=== PATIENT | female | born 1970 | race Caucasian/White ===

== ENCOUNTER 2016-08-17 22:06 | Emergency (ER) | payer MEDICAID ==
[2016-08-17 22:19] VITALS: BP 128/71
[2016-08-17] MEDS ORDERED: Sodium Chloride 0.9% 10 ML Syringe FLUSH PRN (22:31)
[2016-08-17] MEDS ORDERED: Albuterol/Ipratropium 3.0-0.5 MG/3 ML Neb Soln NEB ONE (22:32)
--- NOTE | 2016-08-17 22:36 | EDM.PDOC ---
ED HISTORY OF PRESENT ILLNESS - General Chief Complaint: Respiratory Problem Stated Complaint: UPPER RESP PROBLEMS,SOB Time Seen by Provider: 08/17/16 22:25 Source of Information: Reports: Patient History Limitations: Reports: No limitations - History of Present Illness INITIAL COMMENTS - FREE TEXT/NARRATIVE: This 46 yo female patient reports to the ED with increased shortness of breath and cough. The patient reports her symptoms started on Sunday (4 days ago) and have been getting worse. The patient reports she does have a history of asthma and did a nebulizer treatment prior to coming to the ED. The patient has been taking Aleve - D since Sunday with little to no symptom improvement. The patient has not been able to see her primary care facility as her provider is out of town for a week. Symptom Onset Date: 08/14/16 Timing/Duration: Reports: Constant, Getting worse Severity: moderate Location, General: Reports: chest Quality: Reports: Dull, Pressure Improves with: Reports: None Worsens with: Reports: Movement Associated Symptoms (General): Reports: cough, cough w sputum, shortness of breath Treatments HATCH TENDER: Reports: Breathing treatments, Other medication(s) (Aleve-D) - Related Data Allergies/ADRs: Allergies Allergy/AdvReac Type Severity Reaction Status Date / Time No Known Allergies Allergy Verified 08/17/16 22:14 ED ROS GENERAL - Review of Systems Review Of Systems: ROS reveals no pertinent complaints other than HPI. ED EXAM, GENERAL - Physical Exam Exam: See Below Exam Limited By: No limitations General Appearance: alert, WD/WN, moderate distress Eye Exam: bilateral eye: EOMI, normal inspection, PERRL Ears: normal external exam, normal canal, hearing grossly normal, normal TMs Nose: normal inspection, normal mucosa, no blood Throat/Mouth: Normal inspection, Normal lips, Normal teeth, Normal gums, Normal oropharynx, Normal voice, No airway compromise Head: atraumatic, normocephalic Neck: normal inspection, supple, non-tender, full range of motion Respiratory/Chest: decreased breath sounds, rhonchi (diffuse), wheezing (diffuse ) Cardiovascular: normal peripheral pulses, regular rate, rhythm, no edema, no gallop, no JVD, no murmur, no rub GI/Abdominal: normal bowel sounds, soft, non tender, no organomegaly, no distention, no abnormal bruit, no mass (Female) Exam: Deferred Rectal (Female) Exam: Deferred Back Exam: normal inspection, full range of motion, NT Extremities: normal inspection, normal range of motion, non-tender, normal capillary refill, no pedal edema Neurological: alert, oriented, CN II-XII intact, normal cognition, normal gait, normal reflexes, no motor/sensory deficits Psychiatric: normal affect, normal mood Skin Exam: Warm, Dry, Intact, Normal color, No rash Lymphatic: no adenopathy Course - Vital Signs Last Recorded V/S: Last Vital Signs Temp 36.6 C 08/17/16 22:18 Pulse 83 08/17/16 22:18 Resp 24 H 08/17/16 22:18 BP 128/71 08/17/16 22:18 Pulse Ox 97 08/17/16 22:18 - Orders/Labs/Meds Orders: Active Orders 24 hr Category Date Time Status RT Aerosol Therapy [RC] ASDIRECTED Care 08/17/16 22:32 Active Sodium Chloride 0.9% [Saline Flush] Med 08/17/16 22:31 Active 10 ml FLUSH ASDIRECTED PRN cefTRIAXone [Rocephin] 1 gm Med 08/17/16 23:08 Ordered Sodium Chloride 0.9% [Normal Saline] 100 ml IV ONETIME Saline Lock Insert [OM.PC] Routine Oth 08/17/16 22:31 Ordered Medication Orders Ceftriaxone Sodium 1 gm/ (Sodium Chloride) 100 mls @ 200 mls/hr IV ONETIME ONE Stop: 08/17/16 23:37 Sodium Chloride (Saline Flush) 10 ml FLUSH ASDIRECTED PRN PRN Reason: Keep Vein Open Last Admin: 08/17/16 22:49 Dose: 10 ml Labs: Laboratory Tests 08/17/16 08/17/16 Range/Units 22:35 22:35 WBC 12.6 H (5.0-10.0) 10^3/uL RBC 4.19 L (4.2-5.4) 10^6/uL Hgb 13.1 (12.0-16.0) g/dL Hct 40.7 (37.0-47.0) % MCV 97.1 (80-100) fL MCH 31.3 (27.0-34.0) pg MCHC 32.2 L (33.0-35.0) g/dL Plt Count 203 (150-450) 10^3/uL Neut % (Auto) 68.5 (42.2-75.2) % Lymph % (Auto) 22.4 (20.5-50.1) % [place] % (Auto) 6.1 (2-8) % Eos % (Auto) 2.8 (1.0-3.0) % Baso % (Auto) 0.2 (0.0-1.0) % Sodium 137 (135-145) mmol/L Potassium 3.0 L (3.6-5.0) mmol/L Chloride 101 (101-111) mmol/L Carbon Dioxide 25.0 (21.0-31.0) mmol/L Anion Gap 14.0 BUN 11 (7-18) mg/dL Creatinine 0.7 (0.6-1.3) mg/dL Est Cr Clr Drug Dosing 92.29 mL/min Estimated GFR (MDRD) > 60 BUN/Creatinine Ratio 15.71 Glucose 177 H (74-105) mg/dL Calcium 8.7 (8.4-10.2) mg/dl Total Bilirubin 0.3 (0.2-1.0) mg/dL AST 29 (10-42) IU/L ALT 26 (10-60) IU/L Alkaline Phosphatase 84 (42-121) IU/L Total Protein 7.0 (6.7-8.2) g/dl Albumin 3.7 (3.2-5.5) g/dl Globulin 3.3 Albumin/Globulin Ratio 1.12 Meds: Medications Generic Name Dose Route Start Last Admin Trade Name Freq PRN Reason Stop Dose Admin Ceftriaxone Sodium 1 gm/ 100 mls @ 200 mls/hr 08/17/16 23:08 Sodium Chloride IV 08/17/16 23:37 ONETIME ONE Sodium Chloride 10 ml 08/17/16 22:31 08/17/16 22:49 Saline Flush FLUSH 10 ml ASDIRECTED PRN Administration Keep Vein Open Discontinued Medications Generic Name Dose Route Start Last Admin Trade Name Freq PRN Reason Stop Dose Admin Albuterol/Ipratropium 3 ml 08/17/16 22:32 08/17/16 22:49 Duoneb 3.0-0.5 Mg/3 Ml NEB 08/17/16 22:33 3 ml ONETIME ONE Administration Guaifenesin/Codeine Phosphate 5 ml 04/06/17 23:08 Robitussin Ac PO 08/17/16 23:09 ONETIME ONE Methylprednisolone Sodium Succinate 40 mg 08/17/16 23:08 Solu-Medrol IVPUSH 08/17/16 23:09 ONETIME ONE Departure - Departure Time of Disposition: 23:11 Disposition: Home, Self-Care 01 Condition: fair Clinical Impression: Community acquired pneumonia Instructions: Community-Acquired Pneumonia, Adult, [id number] Forms: ED Department Discharge Care Plan Goals: The patient was advised of the examination, lab and x-ray results during the visit. The patient was given a Duo Neb treatment, IV Rocephin, IV SoluMedrol and PO Robitussin AC while in the ED. The patient was discharged with a script for Azithromycin (250 mg) #6 to take 2 by mouth on day 1 and 1 by mouth on days 2-5, Robitussin AC #100 mL to take 5-10 mL by mouth at bedtime as needed for cough, Prednisone (20 mg) #10 to take 2 by mouth daily for 5 days and Albuterol Nebulizer Solution (1.25/3) #1 box to do 1 treatment 4 times per day as needed. If the patient has any additional symptoms or further concerns, the patient should follow-up with her primary care facility or return to the emergency department. - My Orders Last 24 Hours: My Active Orders 08/17/16 22:31 Sodium Chloride 0.9% [Saline Flush] 10 ml FLUSH ASDIRECTED PRN Saline Lock Insert [OM.PC] Routine 08/17/16 22:32 RT Aerosol Therapy [RC] ASDIRECTED 08/17/16 23:08 cefTRIAXone [Rocephin] 1 gm Sodium Chloride 0.9% [Normal Saline] 100 ml IV ONETIME - Assessment/Plan Last 24 Hours: My Active Orders 08/17/16 22:31 Sodium Chloride 0.9% [Saline Flush] 10 ml FLUSH ASDIRECTED PRN Saline Lock Insert [OM.PC] Routine 08/17/16 22:32 RT Aerosol Therapy [RC] ASDIRECTED 08/17/16 23:08 cefTRIAXone [Rocephin] 1 gm Sodium Chloride 0.9% [Normal Saline] 100 ml IV ONETIME
[2016-08-17 23:03] LABS: CHLORIDE,CL 101 mmol/L (101-111); SODIUM,NA 137 mmol/L (135-145)
[2016-08-17] MEDS ORDERED: methylPREDNISolone Sodium Succinate 40 MG/1 ML SDV IVPUSH ONE (23:08)
[2016-08-17] MEDS ORDERED: cefTRIAXone 1 GM in Sodium Chloride 0.9% 100 ML IV ONE (23:08)
[2016-08-17] MEDS ORDERED: Codeine/guaiFENesin 100-10 MG/5 ML Syrup 5 ML Cup PO ONE (23:08)
== END 2016-08-18 00:11 | disposition home or self-care (01) ==
LOC: DL.ED 22:06
DX: J18.9 Pneumonia, unspecified organism (principal)
CPT/HCPCS: 36415; 71020; 80053; 85025; 96365; 96375; 99284; A9270; J0696; J2920; J7050

== ENCOUNTER 2016-09-03 14:02 | Emergency (ER) | payer MEDICAID ==
[2016-09-03 14:18] VITALS: BP 130/79
--- NOTE | 2016-09-03 14:43 | EDM.PDOC ---
ED HISTORY OF PRESENT ILLNESS - General Chief Complaint: Respiratory Problem Stated Complaint: POSSIBLE PNEUMONIA? Time Seen by Provider: 09/03/16 14:34 Source of Information: Reports: Patient History Limitations: Reports: No limitations - History of Present Illness INITIAL COMMENTS - FREE TEXT/NARRATIVE: patient complains of dyspnea and cough. Notes recent diagnosis of pneumonia. Continues to feel symptoms of dyspnea with exertion cough and fatigue. Intermittent fever and chills.complains of productive cough and occasional wheezing. Has a history of asthma Timing/Duration: Reports: Day(s): Severity: moderate Location, General: Reports: chest Quality: Reports: Ache - Related Data Allergies/ADRs: Allergies Allergy/AdvReac Type Severity Reaction Status Date / Time mold Allergy Anaphylactic Verified 09/03/16 14:06 Shock pollen extracts Allergy Anaphylactic Verified 09/03/16 14:06 Shock DUST Allergy Anaphylactic Uncoded 09/03/16 14:06 Shock Home Meds: Home Meds ALPRAZolam [Xanax] 1 mg PO TID PRN 05/13/15 [History] Albuterol Sulfate [Proventil Hfa] 2 puff INH ASDIRECTED PRN 05/13/15 [History] Furosemide [Lasix] 20 mg PO DAILY 05/13/15 [History] Omeprazole 20 mg PO BID 05/13/15 [History] Levothyroxine 125 mcg PO DAILY 03/21/16 [History] Meloxicam 15 mg PO DAILY #30 tablet 03/22/16 [Rx] tiZANidine [Zanaflex] 8 mg PO Q8H PRN #60 03/22/16 [Rx] Past Medical History HEENT History: Reports: Allergic rhinitis, Impaired vision Cardiovascular History: Reports: Heart murmur Respiratory History: Reports: Asthma, Bronchitis, recurrent, Pneumonia, recurrent Gastrointestinal History: Reports: GERD Genitourinary History: Reports: Renal calculus, UTI, recurrent 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 Psychiatric History: Reports: Anxiety Endocrine/Metabolic History: Reports: Hypothyroidism - Infectious Disease History Infectious Disease History: Reports: Chicken pox - Past Surgical History GI Surgical History: Reports: Cholecystectomy, Other (see below) Other GI Surgeries/Procedures: anal fissure repair Female Surgical History: Reports: section Neurological Surgical History: Reports: Other (see below) Other Neurological Surgeries/Procedures: herniated disc repair Musculoskeletal Surgical History: Reports: Other (see below) Other Musculoskeletal Surgeries/Procedures:: KNEE SURGERY 7 YEARS AGO L4-L5 DISK SURGERY, L5-S1 BULGE Social & Family History - Family History Family Medical History: Noncontributory Cardiac: Reports: Hypertension Endocrine/Metabolic: Reports: Diabetes, type II - Tobacco Use Smoking Status *Q: Never Smoker Second Hand Smoke Exposure: No - Caffeine Use Caffeine Use: Reports: None - Recreational Drug Use Recreational Drug Use: No ED ROS GENERAL - Review of Systems Review Of Systems: See Below Constitutional: Reports: fever, chills, malaise HEENT: Reports: No symptoms Respiratory: Reports: Shortness of Breath, Wheezing, Cough, Sputum. Denies: Hemoptysis Cardiovascular: Reports: Dyspnea on exertion. Denies: Blood pressure problem Endocrine: Reports: no symptoms GI/Abdominal: Reports: No symptoms : Reports: no symptoms Musculoskeletal: Reports: no symptoms Skin: Reports: no symptoms Neurological: Reports: No Symptoms Psychiatric: Reports: No symptoms ED EXAM, GENERAL - Physical Exam Exam: See Below Exam Limited By: No limitations General Appearance: alert, WD/WN, no apparent distress Throat/Mouth: Normal inspection, Normal oropharynx Head: atraumatic, normocephalic Respiratory/Chest: decreased breath sounds, rhonchi, wheezing. No: crackles, rales Cardiovascular: regular rate, rhythm, no murmur Course - Vital Signs Last Recorded V/S: Last Vital Signs Temp 97 F 09/03/16 14:17 Pulse 65 09/03/16 15:07 Resp 20 09/03/16 14:17 BP 130/79 09/03/16 14:17 Pulse Ox 98 09/03/16 15:07 - Orders/Labs/Meds Orders: Active Orders 24 hr Category Date Time Status RT Aerosol Therapy [RC] ASDIRECTED Care 09/03/16 15:02 Active Chest 2V [CR] Urgent Exams 09/03/16 14:34 Taken Labs: Laboratory Tests 09/03/16 09/03/16 09/03/16 Range/Units 14:40 14:43 14:43 WBC 10.7 H (5.0-10.0) 10^3/uL RBC 4.22 (4.2-5.4) 10^6/uL Hgb 13.3 (12.0-16.0) g/dL Hct 40.6 (37.0-47.0) % MCV 96.2 (80-100) fL MCH 31.5 (27.0-34.0) pg MCHC 32.8 L (33.0-35.0) g/dL Plt Count 248 (150-450) 10^3/uL Neut % (Auto) 67.2 (42.2-75.2) % Lymph % (Auto) 21.9 (20.5-50.1) % [place] % (Auto) 6.5 (2-8) % Eos % (Auto) 4.1 H (1.0-3.0) % Baso % (Auto) 0.3 (0.0-1.0) % Sodium 137 (135-145) mmol/L Potassium 3.6 (3.6-5.0) mmol/L Chloride 102 (101-111) mmol/L Carbon Dioxide 27.0 (21.0-31.0) mmol/L Anion Gap 11.6 BUN 15 (7-18) mg/dL Creatinine 0.9 (0.6-1.3) mg/dL Est Cr Clr Drug Dosing 71.78 mL/min Estimated GFR (MDRD) > 60 Glucose 86 (74-105) mg/dL Calcium 8.9 (8.4-10.2) mg/dl Urine Color Yellow (YELLOW) Urine Appearance Cloudy (CLEAR) Urine pH 6.0 (5.0-9.0) Ur Specific [place] 1.020 (1.005-1.030) Urine Protein Negative (NEGATIVE) Urine Glucose (UA) Negative (NEGATIVE) Urine Ketones Negative (NEGATIVE) Urine Occult Blood Negative (NEGATIVE) Urine Nitrite Negative (NEGATIVE) Urine Bilirubin Negative (NEGATIVE) Urine Urobilinogen 0.2 (0.2-1.0) mg/dL Ur Leukocyte Esterase Small H (NEGATIVE) Urine RBC 0-5 /HPF Urine WBC 0-5 (0-5/HPF) /HPF Ur Epithelial Cells Many H /HPF Urine Bacteria Moderate H (0-FEW/HPF) /HPF Urinalysis Comment Meds: Medications Discontinued Medications Generic Name Dose Route Start Last Admin Trade Name Freq PRN Reason Stop Dose Admin Albuterol/Ipratropium 3 ml 09/03/16 15:02 09/03/16 15:06 Duoneb 3.0-0.5 Mg/3 Ml NEB 09/03/16 15:03 3 ml ONETIME ONE Administration Departure - Departure Time of Disposition: 15:45 Disposition: Home, Self-Care 01 Condition: good Clinical Impression: Bronchitis Reactive airway disease Qualifiers: Asthma severity: unspecified severity Asthma complication type: uncomplicated Qualified Code(s): J45.909 - Unspecified asthma, uncomplicated Forms: ED Department Discharge Additional Instructions: take the prednisone as directed. Use nebulizers as directed. Weight a few days before committing to Zithromax. Followup with regular provider in one to 2 weeks if needed. Call or return to emergency room if any problems questions or concerns - My Orders Last 24 Hours: My Active Orders 09/03/16 14:34 Chest 2V [CR] Urgent 09/03/16 15:02 RT Aerosol Therapy [RC] ASDIRECTED - Assessment/Plan Last 24 Hours: My Active Orders 09/03/16 14:34 Chest 2V [CR] Urgent 09/03/16 15:02 RT Aerosol Therapy [RC] ASDIRECTED
[2016-09-03] MEDS ORDERED: Albuterol/Ipratropium 3.0-0.5 MG/3 ML Neb Soln NEB ONE (15:02)
[2016-09-03 15:08] LABS: CHLORIDE,CL 102 mmol/L (101-111); SODIUM,NA 137 mmol/L (135-145)
== END 2016-09-03 15:54 | disposition home or self-care (01) ==
LOC: DL.ED 14:02
DX: J40 Bronchitis, not specified as acute or chronic (principal); R01.1 Cardiac murmur, unspecified; Z87.01 Personal history of pneumonia (recurrent); K21.9 Gastro-esophageal reflux disease without esophagitis; F41.9 Anxiety disorder, unspecified; E03.9 Hypothyroidism, unspecified; Z90.49 Acquired absence of other specified parts of digestive tract; Z91.09 Other allergy status, other than to drugs and biological substances; Z79.899 Other long term (current) drug therapy; Z87.440 Personal history of urinary (tract) infections; Z86.73 Personal history of transient ischemic attack (TIA), and cerebral infarction without residual deficits
CPT/HCPCS: 36415; 71020; 80048; 81001; 85025; 94640; 99285

== ENCOUNTER 2016-11-04 09:58 | Emergency (ER) | payer MEDICAID ==
[2016-11-04 10:40] VITALS: BP 121/75
--- NOTE | 2016-11-04 10:47 | EDM.PDOC ---
ED HPI GENERAL MEDICAL PROBLEM - General Chief Complaint: Back Pain or Injury Stated Complaint: [id number] BACK SURGERY SLIPPED & JOLTED JENNIFER Time Seen by Provider: 11/04/16 10:05 Source of Information: Reports: Patient History Limitations: Reports: No Limitations - History of Present Illness INITIAL COMMENTS - FREE TEXT/NARRATIVE: Patient consumers department today with complaints of lower back pain. The patient had a rather extensive surgery on 10/19/16 in [facility] on her L5-S1 region where she had some titanium rods as well as cadaveric bones placed. Last night she went to sit down on a chair when she fell a little hard into the chair and developed left lower back pain. She denies any numbness or tingling to her lower extremities. She denies any change in bowel or bladder. She is able to ambulate with quite a bit of pain although there is no change in the functionality of her lower extremities. She has been taking her oxycodone as well as Zanaflex and her pain is much worse than it was previously. She did talk with the ask a nurse in [place] in the told her to be evaluated to ensure that there is no injury to the hardware that was placed. Lower Back Pain Score (Numeric/FACES): 8 - Related Data Allergies Allergy/AdvReac Type Severity Reaction Status Date / Time mold Allergy Anaphylactic Verified 11/04/16 10:40 Shock pollen extracts Allergy Anaphylactic Verified 11/04/16 10:40 Shock DUST Allergy Anaphylactic Uncoded 09/03/16 14:06 Shock Home Meds: Home Meds ALPRAZolam [Xanax] 1 mg PO TID PRN 05/13/15 [History] Albuterol Sulfate [Proventil Hfa] 2 puff INH ASDIRECTED PRN 05/13/15 [History] Furosemide [Lasix] 20 mg PO DAILY 05/13/15 [History] Omeprazole 20 mg PO BID 05/13/15 [History] Levothyroxine 125 mcg PO DAILY 03/21/16 [History] tiZANidine [Zanaflex] 8 mg PO Q8H PRN #60 03/22/16 [Rx] Diazepam [Valium] 5 mg PO Q6H PRN 11/04/16 [History] Gabapentin [Neurontin] 300 mg PO BID 11/04/16 [History] Gabapentin [Neurontin] 600 mg PO BEDTIME 11/04/16 [History] Past Medical History HEENT History: Reports: Allergic Rhinitis, Impaired Vision Cardiovascular History: Reports: Heart Murmur Respiratory History: Reports: Asthma, Bronchitis, Recurrent, Pneumonia, Recurrent Gastrointestinal History: Reports: GERD Genitourinary History: Reports: Renal Calculus, UTI, Recurrent 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 Psychiatric History: Reports: Anxiety Endocrine/Metabolic History: Reports: Hypothyroidism - Infectious Disease History Infectious Disease History: Reports: Chicken Pox - Past Surgical History GI Surgical History: Reports: Cholecystectomy, Other (See Below) Female Surgical History: Reports: Section Neurological Surgical History: Reports: Other (See Below) Musculoskeletal Surgical History: Reports: Other (See Below) Social & Family History - Family History Family Medical History: Noncontributory Cardiac: Reports: Hypertension Endocrine/Metabolic: Reports: Diabetes, type II - Tobacco Use Smoking Status *Q: Never Smoker Second Hand Smoke Exposure: No - Caffeine Use Caffeine Use: Reports: None - Recreational Drug Use Recreational Drug Use: No ED ROS GENERAL - Review of Systems Review Of Systems: ROS reveals no pertinent complaints other than HPI. ED EXAM,LOWER BACK PAIN/INJURY - Physical Exam Exam: See Below Text/Narrative:: The patient makes position changes quite slow and stiff. She is able to stand at the bedside and ambulate without a limp. Her gait is steady. Exam Limited By: No Limitations General Appearance: Alert, WD/WN Respiratory/Chest: No Respiratory Distress, Lungs Clear, No Accessory Muscle Use Cardiovascular: Normal Peripheral Pulses, Regular Rate, Rhythm, No Edema Back Exam: Decreased Range of Motion, Other (There is a well-healed vertical incision at the L5-S1 lower lumbar region. There is minimal tenderness just left side of the incision. There is no bony deformity.). No: CVA Tenderness (L) , CVA Tenderness (R), Muscle Spasm, Vertebral Tenderness Extremities: Normal Inspection, Normal Range of Motion, Non-Tender, No Pedal Edema Neurological: Alert, Normal Mood/Affect, Normal Dorsiflexion, CN II-XII Intact, Normal Plantar Flexion, Normal Gait, Normal Reflexes, No Motor/Sensory Deficits , Oriented x 3 DTR - Lower Extremities: 2+: Knee (R), Knee (L), Ankle (R), Ankle (L) Psychiatric: Normal Affect, Normal Mood Skin Exam: Warm, Dry, Intact, Normal Color Lymphatic: No Adenopathy Course - Vital Signs Last Recorded V/S: Last Vital Signs Temp 36.2 C 11/04/16 10:29 Pulse 85 11/04/16 10:29 Resp 18 11/04/16 10:29 BP 121/75 11/04/16 10:29 Pulse Ox 98 11/04/16 10:29 - Orders/Labs/Meds Meds: Medications Discontinued Medications Generic Name Dose Route Start Last Admin Trade Name Freq PRN Reason Stop Dose Admin Acetaminophen 1,000 mg 11/04/16 12:00 11/04/16 12:04 Tylenol Extra Strength PO 11/04/16 12:01 1,000 mg ONETIME ONE Administration - Radiology Interpretation Free Text/Narrative:: Per [facility] internal fixation device at [id number]. No acute fracture. No dislocation. Absence of the right facet of the L4-L5. Opacity in this region may represent hemorrhage or infection. resection of part of the right facet at L5/S1. Opacities in this region may represent hemorrhage or infection. I did have our radiologist Dr. Delvalle reviewed as well he did not find any acute fractures hemorrhage or swelling. - Re-Assessments/Exams Free Text/Narrative Re-Assessment/Exam: 11/04/16 12:33 Pt refused any narcotics for pain as she does not like them. DId take some tylenol PO. Radiology report from [facility] is somewhat vague, I did have Dr. Delvalle our radiologist and he finds no acute fracture swelling or hematoma. Did send the patients CT to her surgeon in [facility], conservative management at this time. Discharge instructions as below were relayed to the patient she is comfortable with this plan and her questions are answered Departure - Departure Time of Disposition: 12:26 Disposition: Home, Self-Care 01 Clinical Impression: Back pain Qualifiers: Back pain location: low back pain Chronicity: acute Back pain laterality: midline Sciatica presence: without sciatica Qualified Code(s): M54.5 - Low back pain - Discharge Information Instructions: Back Pain, Adult, [id number] Forms: ED Department Discharge Additional Instructions: Ice to the affected area quite aggressively over the next 72 hours. Be cautious with position changes. Do not bedridden yourself as this can make muscle spasms worse. Continue your oxycodone and/or Zanaflex as needed for pain. Do not take any nonsteroidal anti-inflammatories until cleared by her surgeon. Your CT scans were sent electronically to her surgeon in [place]. Return to emergency department if new worsening symptoms. Follow-up with your surgeon on Sunday. - Assessment/Plan Assessment:: Lower back pain after a hard sit down in a chair, SP lower back surgery on the of this month. Plan: Ice to the affected area quite aggressively over the next 72 hours. Be cautious with position changes. Do not bedridden yourself as this can make muscle spasms worse. Continue your oxycodone and/or Zanaflex as needed for pain. Do not take any nonsteroidal anti-inflammatories until cleared by her surgeon. Your CT scans were sent electronically to her surgeon in [place]. Return to emergency department if new worsening symptoms. Follow-up with your surgeon on Sunday.
[2016-11-04] MEDS ORDERED: Acetaminophen 500 MG Tab PO ONE (12:00)
== END 2016-11-04 12:38 | disposition home or self-care (01) ==
LOC: DL.ED 09:58
DX: M54.5 Low back pain (principal); H54.7 Unspecified visual loss; F41.9 Anxiety disorder, unspecified; E03.9 Hypothyroidism, unspecified; J45.909 Unspecified asthma, uncomplicated; Z91.048 Other nonmedicinal substance allergy status; Z79.899 Other long term (current) drug therapy; Z90.49 Acquired absence of other specified parts of digestive tract; K21.9 Gastro-esophageal reflux disease without esophagitis; Z87.01 Personal history of pneumonia (recurrent); Z87.440 Personal history of urinary (tract) infections; Z86.73 Personal history of transient ischemic attack (TIA), and cerebral infarction without residual deficits; Z98.890 Other specified postprocedural states; Z91.09 Other allergy status, other than to drugs and biological substances
CPT/HCPCS: 72131; 99284; A9270

== ENCOUNTER 2016-12-26 20:02 | Emergency (ER) | payer MEDICAID ==
[2016-12-26 20:12] VITALS: BP 142/106
--- NOTE | 2016-12-26 21:17 | EDM.PDOC ---
ED HPI GENERAL MEDICAL PROBLEM - General Chief Complaint: Back Pain or Injury Stated Complaint: BACK PAIN [phone] Time Seen by Provider: 12/26/16 20:47 Source of Information: Reports: Patient History Limitations: Reports: No Limitations - History of Present Illness INITIAL COMMENTS - FREE TEXT/NARRATIVE: ED with complaint of severe back pain with radiation to right buttock. Notes scheduled for back surgery in [facility] on Sunday. Fusion L4-L5 failed and has "protruding disc." Tried xanaflex at home and didn't help. Unable to take oral pain meds due to them making her nauseated. PCP had been Greg but moving to local area and states she is seeing Redd now. Brings paperwork with her required for Pre-op noting Redd is out of town this week. Recent appointment in [place] and sitting in car for 6 hours triggered onset of acute pain. 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) Lower Back Pain Score (Numeric/FACES): 8 - Related Data Allergies Allergy/AdvReac Type Severity Reaction Status Date / Time mold Allergy Anaphylactic Verified 12/26/16 20:22 Shock pollen extracts Allergy Anaphylactic Verified 12/26/16 20:22 Shock DUST Allergy Anaphylactic Uncoded 12/26/16 20:22 Shock Home Meds: Home Meds ALPRAZolam [Xanax] 1 mg PO TID PRN 05/13/15 [History] Albuterol Sulfate [Proventil Hfa] 2 puff INH ASDIRECTED PRN 05/13/15 [History] Furosemide [Lasix] 20 mg PO DAILY 05/13/15 [History] Omeprazole 20 mg PO BID 05/13/15 [History] Levothyroxine 125 mcg PO DAILY 03/21/16 [History] tiZANidine [Zanaflex] 8 mg PO Q8H PRN #60 03/22/16 [Rx] Gabapentin [Neurontin] 300 mg PO BID 11/04/16 [History] Gabapentin [Neurontin] 600 mg PO BEDTIME 11/04/16 [History] Past Medical History HEENT History: Reports: Allergic Rhinitis, Impaired Vision Cardiovascular History: Reports: Heart Murmur Respiratory History: Reports: Asthma, Bronchitis, Recurrent, Pneumonia, Recurrent Gastrointestinal History: Reports: GERD Genitourinary History: Reports: Renal Calculus, UTI, Recurrent 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 Psychiatric History: Reports: Anxiety Endocrine/Metabolic History: Reports: Hypothyroidism - Infectious Disease History Infectious Disease History: Reports: Chicken Pox - Past Surgical History GI Surgical History: Reports: Cholecystectomy, Other (See Below) Female Surgical History: Reports: Section Neurological Surgical History: Reports: Other (See Below) Musculoskeletal Surgical History: Reports: Other (See Below) Social & Family History - Family History Family Medical History: Noncontributory Cardiac: Reports: Hypertension Endocrine/Metabolic: Reports: Diabetes, type II - Tobacco Use Smoking Status *Q: Never Smoker Second Hand Smoke Exposure: No - Caffeine Use Caffeine Use: Reports: None - Recreational Drug Use Recreational Drug Use: No ED ROS GENERAL - Review of Systems Review Of Systems: ROS reveals no pertinent complaints other than HPI. ED EXAM,LOWER BACK PAIN/INJURY - Physical Exam Exam: See Below Exam Limited By: No Limitations General Appearance: Anxious, Moderate Distress, Obese Eye Exam: Bilateral Eye: EOMI, PERRL Ears: Normal External Exam Nose: Normal Inspection Throat/Mouth: Normal Inspection, Normal Lips Head: Atraumatic, Normocephalic Neck: Normal Inspection Respiratory/Chest: No Respiratory Distress Cardiovascular: Normal Peripheral Pulses, Regular Rate, Rhythm GI/Abdominal: Normal Bowel Sounds, Soft Back Exam: Paraspinal Tenderness (right), Vertebral Tenderness (mild sacral with palpation). No: CVA Tenderness (L), CVA Tenderness (R) Extremities: Normal Inspection, Normal Range of Motion, No Pedal Edema Neurological: Alert, Normal Gait, Normal Reflexes, Oriented x 3, Other (equal strength bilateral . increased pain to RLE with resistance. ). No: Saddle Anesthesia, Difficulty Walking Psychiatric: Anxious, Tearful Skin Exam: Warm, Dry, Intact, Normal Color Course - Vital Signs Last Recorded V/S: Last Vital Signs Temp 98.7 F 12/26/16 20:09 Pulse 100 12/26/16 20:09 Resp 22 H 12/26/16 20:09 BP 142/106 H 12/26/16 20:09 Pulse Ox 100 12/26/16 20:09 - Orders/Labs/Meds Labs: Laboratory Tests 12/26/16 12/26/16 Range/Units 20:05 20:05 Urine Color Yellow (YELLOW) Urine Appearance Clear (CLEAR) Urine pH 5.5 (5.0-9.0) Ur Specific [place] 1.020 (1.005-1.030) Urine Protein Negative (NEGATIVE) Urine Glucose (UA) Negative (NEGATIVE) Urine Ketones Negative (NEGATIVE) Urine Occult Blood Negative (NEGATIVE) Urine Nitrite Negative (NEGATIVE) Urine Bilirubin Negative (NEGATIVE) Urine Urobilinogen 0.2 (0.2-1.0) mg/dL Ur Leukocyte Esterase Negative (NEGATIVE) Urine RBC 0-5 /HPF Urine WBC 0-5 (0-5/HPF) /HPF Ur Epithelial Cells Few /HPF Urine Bacteria Occasional (0-FEW/HPF) /HPF Urine Mucus Occasional /LPF Urine Opiates Screen Negative (NEGATIVE) Ur Oxycodone Screen Negative (NEGATIVE) Urine Methadone Screen Negative (NEGATIVE) Ur Barbiturates Screen Negative (NEGATIVE) U Tricyclic Antidepress Negative (NEGATIVE) Ur Phencyclidine Scrn Negative (NEGATIVE) Ur Amphetamine Screen Negative (NEGATIVE) U Methamphetamines Scrn Negative (NEGATIVE) Urine MDMA Screen Negative (NEGATIVE) U Benzodiazepines Scrn Positive H (NEGATIVE) Urine Cocaine Screen Negative (NEGATIVE) U Marijuana (THC) Screen Negative (NEGATIVE) Meds: Medications Discontinued Medications Generic Name Dose Route Start Last Admin Trade Name Isaiahq PRN Reason Stop Dose Admin Hydrocodone Bitart/Acetaminophen Confirm 12/26/16 21:21 12/26/16 21:29 [place] 325-10 Mg Administered 12/26/16 21:22 Not Given Dose 3 tab .ROUTE .STK-MED ONE Cyclobenzaprine HCl Confirm 12/26/16 21:22 12/26/16 21:29 Flexeril Administered 12/26/16 21:23 10 mg Dose Administration 10 mg .ROUTE .STK-MED ONE Hydromorphone HCl 1 mg 12/26/16 21:33 12/26/16 21:46 Dilaudid IM 12/26/16 21:34 1 mg ONETIME ONE Administration Orphenadrine Citrate 60 mg 12/26/16 21:34 12/26/16 21:45 Norflex IM 12/26/16 21:35 60 mg ONETIME ONE Administration - Re-Assessments/Exams Free Text/Narrative Re-Assessment/Exam: 12/27/16 03:36 Patient informed she would need to follow with PCP for her pre-op Px. Departure - Departure Time of Disposition: 21:15 Disposition: Home, Self-Care 01 Condition: Fair Clinical Impression: Back pain Qualifiers: Back pain location: low back pain Chronicity: chronic Back pain laterality: right Sciatica presence: with sciatica Sciatica laterality: sciatica of right side Qualified Code(s): M54.41 - Lumbago with sciatica, right side - Discharge Information Instructions: Back Pain, Adult, [id number] Forms: ED Department Discharge Additional Instructions: Follow up for pre op Home medications ice to low back
[2016-12-26] MEDS ORDERED: Acetaminophen/HYDROcodone 325-10 MG Tab ONE (21:21)
[2016-12-26] MEDS ORDERED: Cyclobenzaprine 10 MG Tab ONE (21:22)
[2016-12-26] MEDS ORDERED: Cyclobenzaprine 10 MG Tab PO ONE (21:22)
[2016-12-26] MEDS ORDERED: HYDROmorphone 1 MG/ML Syringe IM ONE (21:33)
== END 2016-12-26 21:52 | disposition home or self-care (01) ==
LOC: DL.ED 20:02
DX: M54.41 Lumbago with sciatica, right side (principal); H54.7 Unspecified visual loss; J45.909 Unspecified asthma, uncomplicated; E03.9 Hypothyroidism, unspecified; K21.9 Gastro-esophageal reflux disease without esophagitis; F41.9 Anxiety disorder, unspecified; Z91.048 Other nonmedicinal substance allergy status; Z87.01 Personal history of pneumonia (recurrent); Z86.73 Personal history of transient ischemic attack (TIA), and cerebral infarction without residual deficits; Z90.49 Acquired absence of other specified parts of digestive tract; Z79.899 Other long term (current) drug therapy
CPT/HCPCS: 80305; 81001; 96372; 99283; A9270; J1170; J2360

== ENCOUNTER 2017-03-22 19:45 | Emergency (ER) | payer MEDICAID ==
[2017-03-22] MEDS ORDERED: Cephalexin 500 MG Cap PO ONE ×2 (19:46→21:06)
[2017-03-22 19:56] VITALS: BP 125/77
[2017-03-22] MEDS ORDERED: Sodium Chloride 0.9% 1,000 ML IV ONE (20:17)
[2017-03-22] MEDS ORDERED: Albuterol/Ipratropium 3.0-0.5 MG/3 ML Neb Soln NEB ONE (20:17)
--- NOTE | 2017-03-22 20:22 | EDM.PDOC ---
ED HPI GENERAL MEDICAL PROBLEM - General Chief Complaint: Respiratory Problem Stated Complaint: CANT BREATHDUNCAN [phone] Time Seen by Provider: 03/22/17 20:17 Source of Information: Reports: Patient History Limitations: Reports: No Limitations - History of Present Illness INITIAL COMMENTS - FREE TEXT/NARRATIVE: 46 yo white female c/o 3 days of SOB w/ productive cough of thick yellow sputum. Pt. states flumshot last week and has been sick since then. PMHx. 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) Chest Pain Score (Numeric/FACES): 4 - Related Data Allergies Allergy/AdvReac Type Severity Reaction Status Date / Time mold Allergy Other Verified 03/22/17 19:53 pollen extracts Allergy Other Verified 03/22/17 19:53 DUST Allergy Other Uncoded 03/22/17 19:53 Home Meds: Home Meds ALPRAZolam [Xanax] 1 mg PO TID PRN 05/13/15 [History] Albuterol Sulfate [Proventil Hfa] 2 puff INH ASDIRECTED PRN 05/13/15 [History] Furosemide [Lasix] 20 mg PO DAILY 05/13/15 [History] Omeprazole 20 mg PO BID 05/13/15 [History] Levothyroxine 125 mcg PO DAILY 03/21/16 [History] tiZANidine [Zanaflex] 8 mg PO Q8H PRN #60 03/22/16 [Rx] Past Medical History HEENT History: Reports: Allergic Rhinitis, Impaired Vision Cardiovascular History: Reports: Heart Murmur Respiratory History: Reports: Asthma, Bronchitis, Recurrent, Pneumonia, Recurrent Gastrointestinal History: Reports: GERD Genitourinary History: Reports: Renal Calculus, UTI, Recurrent 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 Psychiatric History: Reports: Anxiety Endocrine/Metabolic History: Reports: Hypothyroidism - Infectious Disease History Infectious Disease History: Reports: Chicken Pox - Past Surgical History GI Surgical History: Reports: Cholecystectomy, Other (See Below) Female Surgical History: Reports: Section Neurological Surgical History: Reports: Other (See Below) Other Neurological Surgeries/Procedures: back surgery X3 Musculoskeletal Surgical History: Reports: Other (See Below) Other Musculoskeletal Surgeries/Procedures:: back surgery X3 Social & Family History - Family History Family Medical History: Noncontributory Cardiac: Reports: Hypertension Endocrine/Metabolic: Reports: Diabetes, type II - Tobacco Use Smoking Status *Q: Never Smoker Second Hand Smoke Exposure: No - Caffeine Use Caffeine Use: Reports: None - Recreational Drug Use Recreational Drug Use: No ED ROS GENERAL - Review of Systems Review Of Systems: See Below Constitutional: Reports: No Symptoms HEENT: Reports: No Symptoms Respiratory: Reports: Shortness of Breath, Wheezing, Cough, Sputum Cardiovascular: Reports: No Symptoms Endocrine: Reports: No Symptoms GI/Abdominal: Reports: No Symptoms : Reports: No Symptoms Musculoskeletal: Reports: No Symptoms Skin: Reports: No Symptoms Neurological: Reports: No Symptoms Psychiatric: Reports: No Symptoms Hematologic/Lymphatic: Reports: No Symptoms Immunologic: Reports: No Symptoms ED EXAM, GENERAL - Physical Exam Exam: See Below Exam Limited By: No Limitations General Appearance: Alert, WD/WN, No Apparent Distress Eye Exam: Bilateral Eye: EOMI, PERRL Ears: Normal External Exam, Normal Canal Nose: Normal Inspection Throat/Mouth: Normal Inspection, Normal Lips Head: Atraumatic Neck: Normal Inspection Respiratory/Chest: No Respiratory Distress, No Accessory Muscle Use, Rhonchi, Wheezing Cardiovascular: Normal Peripheral Pulses, Regular Rate, Rhythm Back Exam: Normal Inspection Extremities: Normal Inspection, Normal Range of Motion Neurological: Alert, Oriented, CN II-XII Intact Psychiatric: Normal Affect Skin Exam: Warm, Dry, Intact Lymphatic: No Adenopathy Course - Vital Signs Text/Narrative:: CXR Negative and Labs normal Last Recorded V/S: Last Vital Signs Temp 37.1 C 03/22/17 19:55 Pulse 84 03/22/17 20:49 Resp 18 03/22/17 19:55 BP 125/77 03/22/17 19:55 Pulse Ox 97 03/22/17 19:55 - Orders/Labs/Meds Orders: Active Orders 24 hr Category Date Time Status RT Aerosol Therapy [RC] ASDIRECTED Care 03/22/17 20:18 Active CULTURE SPUTUM + SMEAR [RM] Stat Lab 03/22/17 20:26 Uncollected Labs: Laboratory Tests 03/22/17 03/22/17 Range/Units 20:30 20:30 WBC 8.3 (5.0-10.0) 10^3/uL RBC 4.32 (4.2-5.4) 10^6/uL Hgb 12.9 (12.0-16.0) g/dL Hct 39.6 (37.0-47.0) % MCV 91.7 D (80-100) fL MCH 29.9 (27.0-34.0) pg MCHC 32.6 L (33.0-35.0) g/dL Plt Count 234 (150-450) 10^3/uL Neut % (Auto) 71.8 (42.2-75.2) % Lymph % (Auto) 20.1 L (20.5-50.1) % [place] % (Auto) 7.5 (2-8) % Eos % (Auto) 0.4 L (1.0-3.0) % Baso % (Auto) 0.2 (0.0-1.0) % Lactic Acid 1.1 (0.5-2.2) mmol/L Meds: Medications Discontinued Medications Generic Name Dose Route Start Last Admin Trade Name Freq PRN Reason Stop Dose Admin Albuterol/Ipratropium 3 ml 03/22/17 20:17 03/22/17 20:35 Duoneb 3.0-0.5 Mg/3 Ml NEB 03/22/17 20:18 3 ml ONETIME ONE Administration Benzonatate 200 mg 03/22/17 21:13 03/22/17 21:18 Tessalon Perles PO 03/22/17 21:14 200 mg ONETIME ONE Administration Cephalexin 500 mg 03/22/17 21:06 03/22/17 21:13 Keflex PO 03/22/17 21:07 500 mg ONETIME ONE Administration Cephalexin Confirm 03/22/17 21:20 03/22/17 21:31 Keflex Administered 03/22/17 21:21 Not Given Dose 500 mg .ROUTE .STK-MED ONE Sodium Chloride 1,000 mls @ 999 mls/hr 03/22/17 20:17 03/22/17 20:36 Normal Saline IV 03/22/17 21:17 999 mls/hr .BOLUS ONE Administration Departure - Departure Time of Disposition: 21:33 Disposition: Home, Self-Care 01 Condition: Good Clinical Impression: Bronchitis - Discharge Information Instructions: Acute Bronchitis, [id number] Referrals: Demi Alcaraz NP [Family Provider] - Forms: ED Department Discharge Additional Instructions: Rest Increase intake of Fluids ( Juice / Water) Try using Vics Vaporizer Use your MDI as needed Take the prescribed medications as ordered: KEFLEX 500mg BID # 14 MUCINEX 600mg BID # 30 TESSALON PERLES 100mg TID # 25 F/U w/ PCP - My Orders Last 24 Hours: My Active Orders 03/22/17 20:18 RT Aerosol Therapy [RC] ASDIRECTED 03/22/17 20:26 CULTURE SPUTUM + SMEAR [RM] Stat - Assessment/Plan Last 24 Hours: My Active Orders 03/22/17 20:18 RT Aerosol Therapy [RC] ASDIRECTED 03/22/17 20:26 CULTURE SPUTUM + SMEAR [RM] Stat
[2017-03-22] MEDS ORDERED: Benzonatate 100 MG Cap PO ONE (21:13)
[2017-03-22] MEDS ORDERED: Cephalexin 500 MG Cap ONE (21:20)
== END 2017-03-22 21:33 | disposition home or self-care (01) ==
LOC: DL.ED 19:45 → SUPCPDRO 19:45 → DL.ED 21:33
DX: J40 Bronchitis, not specified as acute or chronic (principal); K21.9 Gastro-esophageal reflux disease without esophagitis; F41.9 Anxiety disorder, unspecified; E03.9 Hypothyroidism, unspecified; Z79.899 Other long term (current) drug therapy; Z91.048 Other nonmedicinal substance allergy status
CPT/HCPCS: 36415; 71020; 83605; 85025; 94640; 96360; 99284; A9270; J7030

== ENCOUNTER 2017-03-26 01:18 | Emergency (ER) | payer MEDICAID ==
[2017-03-26 01:29] VITALS: BP 157/70
[2017-03-26] MEDS ORDERED: Albuterol/Ipratropium 3.0-0.5 MG/3 ML Neb Soln NEB ONE (01:45)
[2017-03-26] MEDS ORDERED: methylPREDNISolone Sodium Succinate 125 MG/2 ML SDV IM ONE (02:00)
[2017-03-26] MEDS ORDERED: cefTRIAXone 1 GM, Lidocaine 1% 2.1 ML IM ONE ×2 (02:00)
[2017-03-26] MEDS ORDERED: Acetaminophen/Codeine 120-12 MG/5 ML Soln 5 ML UD Cup PO ONE (02:01)
--- NOTE | 2017-03-26 02:13 | EDM.PDOC ---
ED HPI GENERAL MEDICAL PROBLEM - General Chief Complaint: Respiratory Problem Stated Complaint: BRONCHITIS Time Seen by Provider: 03/26/17 01:35 Source of Information: Reports: Patient History Limitations: Reports: No Limitations - History of Present Illness INITIAL COMMENTS - FREE TEXT/NARRATIVE: C/0 continued , cough unable to keep antibiotics down. increasing back and chest pain with coughing. Hx asthma, frquent URI, Patient seen last week for similar and given Keflex and tesselon. Numerous request for something IV to get over this. Chest Pain Score (Numeric/FACES): 7 - Related Data Allergies Allergy/AdvReac Type Severity Reaction Status Date / Time mold Allergy Other Verified 03/26/17 02:03 pollen extracts Allergy Other Verified 03/26/17 02:03 DUST Allergy Other Uncoded 03/26/17 02:03 Home Meds: Home Meds ALPRAZolam [Xanax] 1 mg PO TID PRN 05/13/15 [History] Albuterol Sulfate [Proventil Hfa] 2 puff INH ASDIRECTED PRN 05/13/15 [History] Furosemide [Lasix] 20 mg PO DAILY 05/13/15 [History] Omeprazole 20 mg PO BID 05/13/15 [History] Levothyroxine 125 mcg PO DAILY 03/21/16 [History] tiZANidine [Zanaflex] 8 mg PO Q8H PRN #60 03/22/16 [Rx] Benzonatate 100 mg PO TID 03/26/17 [History] Cephalexin 500 mg PO BID 03/26/17 [History] Past Medical History HEENT History: Reports: Allergic Rhinitis, Impaired Vision Cardiovascular History: Reports: Heart Murmur Respiratory History: Reports: Asthma, Bronchitis, Recurrent, Pneumonia, Recurrent Gastrointestinal History: Reports: GERD Genitourinary History: Reports: Renal Calculus, UTI, Recurrent 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 Psychiatric History: Reports: Anxiety Endocrine/Metabolic History: Reports: Hypothyroidism - Infectious Disease History Infectious Disease History: Reports: Chicken Pox - Past Surgical History GI Surgical History: Reports: Cholecystectomy, Other (See Below) Female Surgical History: Reports: Section Neurological Surgical History: Reports: Other (See Below) Other Neurological Surgeries/Procedures: back surgery X3 Musculoskeletal Surgical History: Reports: Other (See Below) Other Musculoskeletal Surgeries/Procedures:: back surgery X3 Social & Family History - Family History Family Medical History: Noncontributory Cardiac: Reports: Hypertension Endocrine/Metabolic: Reports: Diabetes, type II - Tobacco Use Smoking Status *Q: Never Smoker Second Hand Smoke Exposure: No - Caffeine Use Caffeine Use: Reports: None - Recreational Drug Use Recreational Drug Use: No ED ROS GENERAL - Review of Systems Review Of Systems: See Below Respiratory: Reports: Pleuritic Chest Pain, Cough. Denies: Sputum Cardiovascular: Reports: No Symptoms GI/Abdominal: Reports: Constipation : Reports: No Symptoms Musculoskeletal: Reports: Back Pain Skin: Reports: No Symptoms ED EXAM, GENERAL - Physical Exam Exam: See Below Exam Limited By: No Limitations General Appearance: Alert, Anxious, Mild Distress (frequent forced cough) Eye Exam: Bilateral Eye: EOMI, PERRL Ears: Normal External Exam, Normal TMs Nose: Normal Inspection Throat/Mouth: Normal Inspection Head: Atraumatic, Normocephalic Neck: Normal Inspection Respiratory/Chest: Respiratory Distress (mild with frequent cough. Good exchange bilaterally, Bronchial wheeze with right greater than left. ) Cardiovascular: Normal Peripheral Pulses, Regular Rate, Rhythm GI/Abdominal: Normal Bowel Sounds Neurological: Alert, Oriented, Normal Cognition Psychiatric: Anxious Skin Exam: Warm, Dry, Intact, Normal Color Course - Vital Signs Last Recorded V/S: Last Vital Signs Temp 97.2 F 03/26/17 01:28 Pulse 78 03/26/17 01:28 Resp 20 03/26/17 01:28 BP 157/70 H 03/26/17 01:28 Pulse Ox 97 03/26/17 01:28 - Orders/Labs/Meds Orders: Active Orders 24 hr Category Date Time Status RT Aerosol Therapy [RC] ASDIRECTED Care 03/26/17 01:46 Active CXR [Chest 2V] [CR] Urgent Exams 03/26/17 01:31 Taken COMPREHENSIVE METABOLIC PN,CMP [CHEM] Stat Lab 03/26/17 01:53 Received INFLUENZA A+B AG SCREEN [RM] Stat Lab 03/26/17 01:59 Ordered Labs: Laboratory Tests 03/26/17 Range/Units 01:53 WBC 6.0 (5.0-10.0) 10^3/uL RBC 4.32 (4.2-5.4) 10^6/uL Hgb 12.7 (12.0-16.0) g/dL Hct 39.7 (37.0-47.0) % MCV 91.9 (80-100) fL MCH 29.4 (27.0-34.0) pg MCHC 32.0 L (33.0-35.0) g/dL Plt Count 238 (150-450) 10^3/uL Neut % (Auto) 51.1 (42.2-75.2) % Lymph % (Auto) 35.1 (20.5-50.1) % [place] % (Auto) 13.1 H (2-8) % Eos % (Auto) 0.5 L (1.0-3.0) % Baso % (Auto) 0.2 (0.0-1.0) % Meds: Medications Discontinued Medications Generic Name Dose Route Start Last Admin Trade Name Freq PRN Reason Stop Dose Admin Acetaminophen/Codeine Phosphate 10 ml 03/26/17 02:01 Tylenol/Codeine 120-12 Mg/5 Ml PO 03/26/17 02:02 ONETIME ONE Albuterol/Ipratropium 3 ml 03/26/17 01:45 03/26/17 01:54 Duoneb 3.0-0.5 Mg/3 Ml NEB 03/26/17 01:46 3 ml ONETIME ONE Administration Ceftriaxone Sodium 1 gm/ 0 gm 03/26/17 02:00 Lidocaine HCl 2.1 ml IM 03/26/17 02:01 ONETIME ONE Methylprednisolone Sodium Succinate 125 mg 03/26/17 02:00 Solu-Medrol IM 03/26/17 02:01 ONETIME ONE - Re-Assessments/Exams Free Text/Narrative Re-Assessment/Exam: 03/26/17 02:14 cough decreased following duoneb treatment. Patient no acute respiratory distress, talking complete full sentences continually thru ED visit. Anxious, Departure - Departure Time of Disposition: 02:16 Disposition: Home, Self-Care 01 Condition: Fair Clinical Impression: Exacerbation of asthma Qualifiers: Asthma severity: moderate Asthma persistence: unspecified Qualified Code(s): J45.901 - Unspecified asthma with (acute) exacerbation Upper respiratory infection Qualifiers: URI type: unspecified viral URI Qualified Code(s): J06.9 - Acute upper respiratory infection, unspecified; B97.89 - Other viral agents as the cause of diseases classified elsewhere; B97.89 - Other viral agents as the cause of diseases classified elsewhere - Discharge Information Instructions: Asthma, Adult Additional Instructions: Albuterol nebulizer every 4 hours prednisone 60mg x2 days, 40mg x 3 days, 20mg x 3 days Recheck in clinic this week increase fluid intake tylenol or ibuprofen for discomfort deep breathing exercises with incentive spirometer back and chest support with pillow while coughing - My Orders Last 24 Hours: My Active Orders 03/26/17 01:31 CXR [Chest 2V] [CR] Urgent 03/26/17 01:46 RT Aerosol Therapy [RC] ASDIRECTED 03/26/17 01:53 COMPREHENSIVE METABOLIC PN,CMP [CHEM] Stat 03/26/17 01:59 INFLUENZA A+B AG SCREEN [RM] Stat - Assessment/Plan Last 24 Hours: My Active Orders 03/26/17 01:31 CXR [Chest 2V] [CR] Urgent 03/26/17 01:46 RT Aerosol Therapy [RC] ASDIRECTED 03/26/17 01:53 COMPREHENSIVE METABOLIC PN,CMP [CHEM] Stat 03/26/17 01:59 INFLUENZA A+B AG SCREEN [RM] Stat
[2017-03-26 02:16] LABS: CHLORIDE,CL 104 mmol/L (101-111); SODIUM,NA 139 mmol/L (135-145)
== END 2017-03-26 02:31 | disposition home or self-care (01) ==
LOC: DL.ED 01:18
DX: J45.901 Unspecified asthma with (acute) exacerbation (principal); J06.9 Acute upper respiratory infection, unspecified; Z79.899 Other long term (current) drug therapy; Z91.09 Other allergy status, other than to drugs and biological substances
CPT/HCPCS: 36415; 71020; 80053; 85025; 87804; 94640; 96372; 99283; A9270; J0696; J2930

== ENCOUNTER 2017-04-15 16:34 | Emergency (ER) | payer MEDICAID ==
[2017-04-15 16:41] VITALS: BP 143/88
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
== END 2017-04-15 17:37 | disposition home or self-care (01) ==
LOC: DL.ED 16:34
DX: S60.212A Contusion of left wrist, initial encounter (principal); S20.219A Contusion of unspecified front wall of thorax, initial encounter; Z79.899 Other long term (current) drug therapy; Y04.0XXA Assault by unarmed brawl or fight, initial encounter
CPT/HCPCS: 71020; 73110-LT; 99284

== ENCOUNTER 2017-06-18 09:36 | Emergency (ER) | payer MEDICAID ==
--- NOTE | 2017-06-18 09:40 | EDM.PDOC ---
ED HPI GENERAL MEDICAL PROBLEM - General Chief Complaint: ENT Problem Stated Complaint: NO VOICE, SORE THROAT, COUGH X2 MONTHS Time Seen by Provider: 06/18/17 09:40 Source of Information: Reports: Patient, Old Records, RN, RN Notes Reviewed History Limitations: Reports: No Limitations - History of Present Illness INITIAL COMMENTS - FREE TEXT/NARRATIVE: Arrives from home by POV with c/o 2 months duration of cough with chunks of thick yellow sputum, recurrent fever and chills, generalized body aches, on/off nasal drainage, and sore throat. Yesterday pt began coughing up pink tinged sputum and occasional streaks of bright red blood. For several days pt has had a hoarse voice and can only whisper. Pt says she went to clinic last week and had a "normal chest xray", negative flu swab, and all her blood tests were normal, except for a "borderline diabetic range blood sugar". Pt doesn't know exactly what lab tests were done. She states she was prescribed Tessalon Perles , and told to take Mucinex, and Aleve-D, but the medicines made no difference in her symptoms. About 2 months ago she states she was treated with a Medrol dose pack and the first 3 days of the steroid course she was much better, but then the symptoms all came back. She has not followed back up in clinic because the clinic is "booked up" and she cannot get an appointment. 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: Other Medication(s), Other (see below) Throat Pain Score (Numeric/FACES): 8 - Related Data Allergies Allergy/AdvReac Type Severity Reaction Status Date / Time mold Allergy Other Verified 06/18/17 09:41 pollen extracts Allergy Other Verified 06/18/17 09:41 DUST Allergy Other Uncoded 03/26/17 02:03 Home Meds: Home Meds ALPRAZolam [Xanax] 1 mg PO TID PRN 05/13/15 [History] Albuterol Sulfate [Proventil Hfa] 2 puff INH ASDIRECTED PRN 05/13/15 [History] Furosemide [Lasix] 20 mg PO DAILY 05/13/15 [History] Omeprazole 20 mg PO BID 05/13/15 [History] Levothyroxine 125 mcg PO DAILY 03/21/16 [History] tiZANidine [Zanaflex] 8 mg PO Q8H PRN #60 03/22/16 [Rx] Benzonatate 100 mg PO TID 03/26/17 [History] Naproxen Sodium/P-Ephed HCl [Aleve-D Sinus & Cold Caplet] 1 each PO ASDIRECTED 06/18/17 [History] guaiFENesin [Mucinex] 600 mg PO ASDIRECTED 06/18/17 [History] Past Medical History HEENT History: Reports: Allergic Rhinitis, Impaired Vision Cardiovascular History: Reports: Heart Murmur Respiratory History: Reports: Asthma, Bronchitis, Recurrent, Pneumonia, Recurrent Gastrointestinal History: Reports: GERD Genitourinary History: Reports: Renal Calculus, UTI, Recurrent 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 Psychiatric History: Reports: Anxiety Endocrine/Metabolic History: Reports: Hypothyroidism - Infectious Disease History Infectious Disease History: Reports: Chicken Pox - Past Surgical History GI Surgical History: Reports: Cholecystectomy, Other (See Below) Female Surgical History: Reports: Section Neurological Surgical History: Reports: Other (See Below) Other Neurological Surgeries/Procedures: back surgery X3 Musculoskeletal Surgical History: Reports: Other (See Below) Other Musculoskeletal Surgeries/Procedures:: back surgery X3 Social & Family History - Family History Family Medical History: Noncontributory Cardiac: Reports: Hypertension Endocrine/Metabolic: Reports: Diabetes, type II - Tobacco Use Smoking Status *Q: Never Smoker Second Hand Smoke Exposure: No - Caffeine Use Caffeine Use: Reports: None - Recreational Drug Use Recreational Drug Use: No - Living Situation & Occupation Living situation: Reports: with Family ED ROS ENT - Review of Systems Review Of Systems: ROS reveals no pertinent complaints other than HPI. ED EXAM, ENT - Physical Exam Exam: See Below Exam Limited By: No Limitations General Appearance: Alert, No Apparent Distress, Anxious, Obese, Other Eye Exam: Bilateral Eye: Normal Inspection Ears: Normal External Exam, Normal Canal, Hearing Grossly Normal, Normal TMs Nose: No Blood Mouth/Throat: Normal Gums, Normal Lips, Normal Teeth, Hoarse Voice, Pharyngeal Erythema. No: Muffled Voice, Oral Ulcers, Peritonsillar Mass, Throat Swelling, Tongue Swelling, Tonsillar Erythema, Tonsillar Exudates, Tonsillar Swelling, Uvular Deviation, Uvular Edema Head: Atraumatic, Normocephalic Neck: Normal Inspection, Supple, Non-Tender, Full Range of Motion, Other (no nuchal rigidity). No: Lymphadenopathy (L), Lymphadenopathy (R) Respiratory/Chest: No Respiratory Distress, No Accessory Muscle Use, Chest Non- Tender, Decreased Breath Sounds, Crackles, Other (course vesicular breath sounds ). No: Retractions, Splinting Cardiovascular: Regular Rate, Rhythm GI/Abdominal: Normal Bowel Sounds, Soft, Non-Tender, No Distention. No: Guarding, Rigid, Rebound (Female) Exam: Deferred Rectal (Female) Exam: Deferred Back: Normal Inspection. No: CVA Tenderness (L), CVA Tenderness (R) Extremities: Normal Inspection, Non-Tender, No Pedal Edema Neurological: Alert, Oriented, CN II-XII Intact, Normal Cognition, Normal Gait, No Motor/Sensory Deficits Psychiatric: Anxious Skin: Warm, Dry, Intact, Normal Color, No Rash Course - Vital Signs Last Recorded V/S: Last Vital Signs Temp 36.6 C 06/18/17 09:48 Pulse 87 06/18/17 09:48 Resp 16 06/18/17 09:48 BP 127/70 06/18/17 09:48 Pulse Ox 99 06/18/17 09:48 - Orders/Labs/Meds Orders: Active Orders 24 hr Category Date Time Status Chest wo Cont [CT] Urgent Exams 06/18/17 10:09 Taken COMPREHENSIVE METABOLIC PN,CMP [CHEM] Stat Lab 06/18/17 10:19 Received CULTURE STREP A CONFIRMATION [RM] Stat Lab 06/18/17 10:10 Results STREP SCRN A RAPID W CULT CONF [RM] Stat Lab 06/18/17 10:10 Results Labs: Laboratory Tests 06/18/17 06/18/17 06/18/17 Range/Units 10:19 10:19 10:19 WBC 10.2 H (5.0-10.0) 10^3/uL RBC 4.36 (4.2-5.4) 10^6/uL Hgb 12.7 (12.0-16.0) g/dL Hct 39.0 (37.0-47.0) % MCV 89.4 (80-100) fL MCH 29.1 (27.0-34.0) pg MCHC 32.6 L (33.0-35.0) g/dL Plt Count 232 (150-450) 10^3/uL Neut % (Auto) 64.3 (42.2-75.2) % Lymph % (Auto) 26.7 (20.5-50.1) % [place] % (Auto) 8.1 H (2-8) % Eos % (Auto) 0.6 L (1.0-3.0) % Baso % (Auto) 0.3 (0.0-1.0) % D-Dimer, Quantitative < 100 (0-400) ng/mL C-Reactive Protein 1.7 H (0.0-1.3) mg/dL Influenza B: Positive Influenza A: Negative Rapid Strep: Negative - Radiology Interpretation Free Text/Narrative:: CT Chest: no acute process, see Rad. report. Departure - Departure Time of Disposition: 11:21 Disposition: Home, Self-Care 01 Condition: Fair Clinical Impression: Influenza B - Discharge Information Instructions: Influenza, Adult Forms: ED Department Discharge Additional Instructions: Rest, drink plenty of water. Use Tylenol or Ibuprofen as needed for fevers or pain. Follow directions on bottle for dosing and precautions. Rx: Prednisone 20mg. Follow up in clinic if not improving in 7 to 10 days. Return to ER if any breathing difficulty develops. - My Orders Last 24 Hours: My Active Orders 06/18/17 10:09 Chest wo Cont [CT] Urgent 06/18/17 10:10 CULTURE STREP A CONFIRMATION [RM] Stat STREP SCRN A RAPID W CULT CONF [RM] Stat 06/18/17 10:19 COMPREHENSIVE METABOLIC PN,CMP [CHEM] Stat - Assessment/Plan Last 24 Hours: My Active Orders 06/18/17 10:09 Chest wo Cont [CT] Urgent 06/18/17 10:10 CULTURE STREP A CONFIRMATION [RM] Stat STREP SCRN A RAPID W CULT CONF [RM] Stat 06/18/17 10:19 COMPREHENSIVE METABOLIC PN,CMP [CHEM] Stat
[2017-06-18 09:54] VITALS: BP 127/70
--- NOTE | 2017-06-18 11:28 | CT ---
Clinical history: 47-year-old 213 pound obese female with cough and hemoptysis (nonsmoker). Cholecyst ectomy. Back surgeries. Scan technique: Volume acquisition of data emergency unenhanced CT scan of the chest (bony thorax, epi ngs and mediastinum) obtained while the patient was lying supine on [place] Siem[place] All data archived in the PACS system for storage, ref ormatting and study. Interpretation: 1. Kyphosis, multilevel disc disease and chronic hypertrophic arthritis (spondylolisthesis) dorsal sp ine. No fracture or dislocation. 2. Mild peribronchial "cuffing" suggesting reactive airway disease. No lung mass or hilar/mediastinal lymphadenopathy. 3. No focal lobar pneumonia. No atelectasis/collapse (trace fluid/fat in the lower major fissure, ant eriorly, right lung). No air trapping. 4. Normal cardiac silhouette. No pericardial effusion. Left-sided aortic arch and aorta normal calibe r. 5. No cephalization of vascular flow; no signs of alveolar edema or dependent pleural effusion. 6. Cholecystectomy. Liver, stomach, spleen, pancreas and adrenal glands unremarkable. CONCLUSION: Mild reactive airway disease. No sign of lung malignancy or lobar pneumonia.
== END 2017-06-18 11:35 | disposition home or self-care (01) ==
LOC: DL.ED 09:36
DX: J10.1 Influenza due to other identified influenza virus with other respiratory manifestations (principal); E03.9 Hypothyroidism, unspecified; Z79.899 Other long term (current) drug therapy
CPT/HCPCS: 36415; 71250; 80053; 85025; 85379; 86140; 87081; 87430; 87804; 99284

== ENCOUNTER 2017-06-27 23:46 | Emergency (ER) | payer MEDICAID ==
[2017-06-27 23:58] VITALS: BP 146/82
[2017-06-28 00:43] LABS: CHLORIDE,CL 100 mmol/L (101-111); SODIUM,NA 137 mmol/L (135-145)
--- NOTE | 2017-06-28 00:52 | EDM.PDOC ---
ED HPI GENERAL MEDICAL PROBLEM - General Chief Complaint: General Stated Complaint: INFECTION ON BACK OF LEG [id number] Time Seen by Provider: 06/27/17 23:55 Source of Information: Reports: Patient History Limitations: Reports: No Limitations - History of Present Illness INITIAL COMMENTS - FREE TEXT/NARRATIVE: Had ingrown hair on back of right leg that daughter pulled out yesterday. Redness started this am and increasing throughout day. Area painful Generalized Pain Score (Numeric/FACES): 6 - Related Data Allergies Allergy/AdvReac Type Severity Reaction Status Date / Time mold Allergy Other Verified 06/18/17 09:41 pollen extracts Allergy Other Verified 06/18/17 09:41 DUST Allergy Other Uncoded 03/26/17 02:03 Home Meds: Home Meds ALPRAZolam [Xanax] 1 mg PO TID PRN 05/13/15 [History] Albuterol Sulfate [Proventil Hfa] 2 puff INH ASDIRECTED PRN 05/13/15 [History] Furosemide [Lasix] 20 mg PO DAILY 05/13/15 [History] Omeprazole 20 mg PO BID 05/13/15 [History] Levothyroxine 125 mcg PO DAILY 03/21/16 [History] tiZANidine [Zanaflex] 8 mg PO Q8H PRN #60 03/22/16 [Rx] Benzonatate 100 mg PO TID 03/26/17 [History] Naproxen Sodium/P-Ephed HCl [Aleve-D Sinus & Cold Caplet] 1 each PO ASDIRECTED 06/18/17 [History] guaiFENesin [Mucinex] 600 mg PO ASDIRECTED 06/18/17 [History] Oseltamivir [Tamiflu] 75 mg PO BID 06/27/17 [History] Past Medical History HEENT History: Reports: Allergic Rhinitis, Impaired Vision Cardiovascular History: Reports: Heart Murmur Respiratory History: Reports: Asthma, Bronchitis, Recurrent, Pneumonia, Recurrent Gastrointestinal History: Reports: GERD Genitourinary History: Reports: Renal Calculus, UTI, Recurrent 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 Psychiatric History: Reports: Anxiety Endocrine/Metabolic History: Reports: Hypothyroidism Hematologic History: Reports: None Immunologic History: Reports: None Oncologic (Cancer) History: Reports: None Dermatologic History: Reports: None - Infectious Disease History Infectious Disease History: Reports: Chicken Pox - Past Surgical History Head Surgeries/Procedures: Reports: None GI Surgical History: Reports: Cholecystectomy, Other (See Below) Female Surgical History: Reports: Section Neurological Surgical History: Reports: Other (See Below) Other Neurological Surgeries/Procedures: back surgery X3 Musculoskeletal Surgical History: Reports: Other (See Below) Other Musculoskeletal Surgeries/Procedures:: back surgery X3 Social & Family History - Family History Family Medical History: Noncontributory Cardiac: Reports: Hypertension Endocrine/Metabolic: Reports: Diabetes, type II - Tobacco Use Smoking Status *Q: Never Smoker Second Hand Smoke Exposure: No - Caffeine Use Caffeine Use: Reports: None - Recreational Drug Use Recreational Drug Use: No - Living Situation & Occupation Living situation: Reports: with Family ED ROS GENERAL - Review of Systems Review Of Systems: See Below Constitutional: Reports: Chills HEENT: Reports: No Symptoms Respiratory: Reports: No Symptoms Cardiovascular: Reports: No Symptoms GI/Abdominal: Reports: Diarrhea : Reports: No Symptoms Musculoskeletal: Reports: No Symptoms Skin: Reports: No Symptoms Neurological: Reports: No Symptoms Psychiatric: Reports: No Symptoms Hematologic/Lymphatic: Reports: No Symptoms Immunologic: Reports: No Symptoms ED EXAM, GENERAL - Physical Exam Exam: See Below Exam Limited By: No Limitations General Appearance: Alert, Mild Distress Eye Exam: Bilateral Eye: PERRL Ear Exam: Bilateral Ear: Other (TM fluid) Nose: Normal Inspection Throat/Mouth: Normal Inspection Head: Atraumatic, Normocephalic Respiratory/Chest: Lungs Clear, Normal Breath Sounds, Other (dry cough) Cardiovascular: Normal Peripheral Pulses, Regular Rate, Rhythm GI/Abdominal: Normal Bowel Sounds Extremities: Leg Pain Skin Exam: Warm, Dry, Intact, Erythema, Increased Warmth, Other (6x5cm red indurated area right posterior leg above knee with white punctate center. ) Course - Vital Signs Last Recorded V/S: Last Vital Signs Temp 97.7 F 06/27/17 23:52 Pulse 86 06/27/17 23:52 Resp 18 06/27/17 23:52 BP 146/82 H 06/27/17 23:52 Pulse Ox 99 06/27/17 23:52 - Orders/Labs/Meds Orders: Active Orders 24 hr Category Date Time Status CULTURE WOUND [RM] Stat Lab 06/28/17 00:05 Received Labs: Laboratory Tests 06/28/17 06/28/17 Range/Units 00:15 00:15 WBC 10.1 H (5.0-10.0) 10^3/uL RBC 3.84 L (4.2-5.4) 10^6/uL Hgb 11.3 L (12.0-16.0) g/dL Hct 34.7 L (37.0-47.0) % MCV 90.4 (80-100) fL MCH 29.4 (27.0-34.0) pg MCHC 32.6 L (33.0-35.0) g/dL Plt Count 212 (150-450) 10^3/uL Neut % (Auto) 66.9 (42.2-75.2) % Lymph % (Auto) 23.2 (20.5-50.1) % Gem % (Auto) 8.6 H (2-8) % Eos % (Auto) 1.0 (1.0-3.0) % Baso % (Auto) 0.3 (0.0-1.0) % Sodium 137 (135-145) mmol/L Potassium 2.7 L (3.6-5.0) mmol/L Chloride 100 L (101-111) mmol/L Carbon Dioxide 29.0 (21.0-31.0) mmol/L Anion Gap 10.7 BUN 14 (7-18) mg/dL Creatinine 0.8 (0.6-1.3) mg/dL Est Cr Clr Drug Dosing 79.91 mL/min Estimated GFR (MDRD) > 60 Glucose 149 H (74-105) mg/dL Calcium 8.2 L (8.4-10.2) mg/dl Meds: Medications Discontinued Medications Generic Name Dose Route Start Last Admin Trade Name Freq PRN Reason Stop Dose Admin Doxycycline Hyclate 100 mg 06/28/17 00:52 06/28/17 00:55 Vibramycin PO 06/28/17 00:53 100 mg ONETIME ONE Administration Potassium Chloride 20 meq 06/28/17 01:08 06/28/17 01:17 Klor-Con 10 PO 06/28/17 01:09 20 meq ONETIME ONE Administration - Re-Assessments/Exams Free Text/Narrative Re-Assessment/Exam: 06/28/17 04:51 c/o resolved, no diarrhea episodes Departure - Departure Time of Disposition: 01:03 Disposition: Home, Self-Care 01 Condition: Good Clinical Impression: Cellulitis of right leg without foot, Hypokalemia - Discharge Information Instructions: Hypokalemia, Cellulitis, Adult, [id number] Forms: ED Department Discharge Additional Instructions: tylenol or ibuprofen for fever/discomfort Doxycycline 100mg twice daily for 10 days keep area covered if draing warm pack to leg 4 times daily for 20 minutes Clinic follow up on Sunday for recheck. potassium 20 mEq twice daily , recheck potassium on Sunday - My Orders Last 24 Hours: My Active Orders 06/28/17 00:05 CULTURE WOUND [RM] Stat - Assessment/Plan Last 24 Hours: My Active Orders 06/28/17 00:05 CULTURE WOUND [RM] Stat
[2017-06-28] MEDS: Doxycycline 100 MG Cap PO ONE (00:55)
[2017-06-28] MEDS: Potassium Chloride 10 MEQ Tab.ER PO ONE (01:17)
== END 2017-06-28 01:25 | disposition home or self-care (01) ==
LOC: DL.ED 23:46
DX: L03.115 Cellulitis of right lower limb (principal); E87.6 Hypokalemia; E03.9 Hypothyroidism, unspecified; Z79.899 Other long term (current) drug therapy
CPT/HCPCS: 36415; 80048; 85025; 87070; 99283; A9270; 87077; 87186

== ENCOUNTER 2017-08-05 10:34 | Emergency (ER) | payer MEDICAID ==
[2017-08-05 10:46] VITALS: BP 124/78
--- NOTE | 2017-08-05 11:58 | EDM.PDOC ---
ED HPI GENERAL MEDICAL PROBLEM - General Chief Complaint: Lower Extremity Injury/Pain Stated Complaint: DID SOMETHING TO RT KNEE Time Seen by Provider: 08/05/17 12:04 Source of Information: Reports: Patient, RN, RN Notes Reviewed History Limitations: Reports: No Limitations - History of Present Illness INITIAL COMMENTS - FREE TEXT/NARRATIVE: Patient presents to ER with complaint of right knee pain. Patient states she was sitting in the recliner, stretching the leg and heard/felt a "pop" in right knee. Patient states she feels swelling. Patient states history of ACL/MCL/ meniscus repair April 2009 and May 2009. Rates pain 4-5/10. Onset Date: 08/04/17 Duration: Getting Worse Location: Reports: Lower Extremity, Right Quality: Reports: Ache Severity: Moderate Improves with: Reports: None Worsens with: Reports: None Associated Symptoms: Reports: No Other Symptoms Right Knee Pain Score (Numeric/FACES): 5 - Related Data Allergies Allergy/AdvReac Type Severity Reaction Status Date / Time mold Allergy Other Verified 08/05/17 10:41 pollen extracts Allergy Other Verified 08/05/17 10:41 DUST Allergy Other Uncoded 08/05/17 10:41 Home Meds: Home Meds ALPRAZolam [Xanax] 1 mg PO TID PRN 05/13/15 [History] Albuterol Sulfate [Proventil Hfa] 2 puff INH ASDIRECTED PRN 05/13/15 [History] Furosemide [Lasix] 20 mg PO DAILY 05/13/15 [History] Omeprazole 20 mg PO BID 05/13/15 [History] Levothyroxine 125 mcg PO DAILY 03/21/16 [History] tiZANidine [Zanaflex] 8 mg PO Q8H PRN #60 03/22/16 [Rx] Naproxen Sodium/P-Ephed HCl [Aleve-D Sinus & Cold Caplet] 1 each PO ASDIRECTED 06/18/17 [History] Past Medical History HEENT History: Reports: Allergic Rhinitis, Impaired Vision Cardiovascular History: Reports: Heart Murmur Respiratory History: Reports: Asthma, Bronchitis, Recurrent, Pneumonia, Recurrent Gastrointestinal History: Reports: GERD Genitourinary History: Reports: Renal Calculus, UTI, Recurrent 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 Psychiatric History: Reports: Anxiety Endocrine/Metabolic History: Reports: Hypothyroidism Hematologic History: Reports: None Immunologic History: Reports: None Oncologic (Cancer) History: Reports: None Dermatologic History: Reports: None - Infectious Disease History Infectious Disease History: Reports: Chicken Pox - Past Surgical History Head Surgeries/Procedures: Reports: None GI Surgical History: Reports: Cholecystectomy, Other (See Below) Female Surgical History: Reports: Section Neurological Surgical History: Reports: Other (See Below) Other Neurological Surgeries/Procedures: back surgery X3 Musculoskeletal Surgical History: Reports: Other (See Below) Other Musculoskeletal Surgeries/Procedures:: back surgery X3 Social & Family History - Family History Family Medical History: Noncontributory Cardiac: Reports: Hypertension Endocrine/Metabolic: Reports: Diabetes, type II - Tobacco Use Smoking Status *Q: Never Smoker Second Hand Smoke Exposure: No - Caffeine Use Caffeine Use: Reports: None - Recreational Drug Use Recreational Drug Use: No - Living Situation & Occupation Living situation: Reports: with Family Review of Systems - Review of Systems Review Of Systems: ROS reveals no pertinent complaints other than HPI. ED EXAM, GENERAL - Physical Exam Exam: See Below Exam Limited By: No Limitations General Appearance: Alert, WD/WN, No Apparent Distress Eye Exam: Bilateral Eye: Normal Inspection Ears: Normal External Exam, Normal Canal, Hearing Grossly Normal, Normal TMs Nose: Normal Inspection, Normal Mucosa, No Blood Throat/Mouth: Normal Inspection, Normal Lips, Normal Teeth, Normal Gums, Normal Oropharynx, Normal Voice, No Airway Compromise Head: Atraumatic, Normocephalic Neck: Normal Inspection, Supple, Non-Tender, Full Range of Motion Respiratory/Chest: Decreased Breath Sounds Cardiovascular: Normal Peripheral Pulses, Regular Rate, Rhythm, No Edema, No Gallop, No JVD, No Murmur, No Rub GI/Abdominal: Normal Bowel Sounds, Soft, Non-Tender, No Organomegaly, No Distention, No Abnormal Bruit, No Mass (Female) Exam: Deferred Rectal (Female) Exam: Deferred Back Exam: Normal Inspection, Full Range of Motion, NT Extremities: Other (Right knee edema with decreased range of motion and tender. ) Neurological: Alert, Oriented, CN II-XII Intact, Normal Cognition, Normal Gait, Normal Reflexes, No Motor/Sensory Deficits Psychiatric: Normal Affect, Normal Mood Skin Exam: Warm, Dry, Intact, Normal Color, No Rash Lymphatic: No Adenopathy Course - Vital Signs Last Recorded V/S: Last Vital Signs Temp 97.1 F 08/05/17 10:42 Pulse 77 08/05/17 10:42 Resp 18 08/05/17 10:42 BP 124/78 08/05/17 10:42 Pulse Ox 97 08/05/17 10:42 - Radiology Interpretation Free Text/Narrative:: Right knee xray: Probable moderate effusion about the knee, no displaced fracture See rad report Departure - Departure Time of Disposition: 12:14 Disposition: Home, Self-Care 01 Condition: Fair Clinical Impression: Effusion of right knee joint - Discharge Information Instructions: Knee Effusion, [id number], Knee Immobilizer, [id number] Forms: ED Department Discharge Additional Instructions: Elevate and ice the knee as tolerated Tylenol and/or ibuprofen for pain Follow up with your primary care facility if no improvement
== END 2017-08-05 12:24 | disposition home or self-care (01) ==
LOC: DL.ED 10:34
DX: M25.461 Effusion, right knee (principal); J45.909 Unspecified asthma, uncomplicated; F41.9 Anxiety disorder, unspecified; K21.9 Gastro-esophageal reflux disease without esophagitis; E03.9 Hypothyroidism, unspecified; Z88.8 Allergy status to other drugs, medicaments and biological substances; Z79.899 Other long term (current) drug therapy; Z86.73 Personal history of transient ischemic attack (TIA), and cerebral infarction without residual deficits; Z87.01 Personal history of pneumonia (recurrent)
CPT/HCPCS: 73562-RT; 99284

== ENCOUNTER 2017-08-25 07:20 | Emergency (ER) | payer MEDICAID ==
[2017-08-25 07:42] VITALS: BP 137/92
--- NOTE | 2017-08-25 07:47 | EDM.PDOC ---
ED HPI GENERAL MEDICAL PROBLEM - General Chief Complaint: Neck Problem Stated Complaint: fall from the chair [id number] Time Seen by Provider: 08/25/17 07:35 Source of Information: Reports: Patient History Limitations: Reports: No Limitations - History of Present Illness INITIAL COMMENTS - FREE TEXT/NARRATIVE: This 47 yo female patient reports to the ED due to falling from a chair hitting the back of her head and neck on a concrete floor. The patient reports she was working at the [employer] when the back of her chair broke causing her to fall directly from the chair to the floor. The patient reports she was on the floor for about 30 minutes before she could get the door open with her foot to call for help. The patient reports the pain in the back of her head and neck was initially rated at a 15/10. The patient reports her upper neck and posterior head continues to be painful. The patient reports she did drive herself here, but has done her best to avoid moving her head. The patient reports numerous back surgeries and back problems, but she has never had a problem with her neck. 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 Head Pain Score (Numeric/FACES): 15 - Related Data Allergies Allergy/AdvReac Type Severity Reaction Status Date / Time mold Allergy Other Verified 08/25/17 07:37 pollen extracts Allergy Other Verified 08/25/17 07:37 DUST Allergy Other Uncoded 08/05/17 10:41 Home Meds: Home Meds ALPRAZolam [Xanax] 1 mg PO TID PRN 05/13/15 [History] Albuterol Sulfate [Proventil Hfa] 2 puff INH ASDIRECTED PRN 05/13/15 [History] Furosemide [Lasix] 20 mg PO DAILY 05/13/15 [History] Omeprazole 20 mg PO BID 05/13/15 [History] Levothyroxine 125 mcg PO DAILY 03/21/16 [History] tiZANidine [Zanaflex] 8 mg PO Q8H PRN #60 03/22/16 [Rx] Naproxen Sodium/P-Ephed HCl [Aleve-D Sinus & Cold Caplet] 1 each PO ASDIRECTED 06/18/17 [History] Past Medical History HEENT History: Reports: Allergic Rhinitis, Impaired Vision Cardiovascular History: Reports: Heart Murmur Respiratory History: Reports: Asthma, Bronchitis, Recurrent, Pneumonia, Recurrent Gastrointestinal History: Reports: GERD Genitourinary History: Reports: Renal Calculus, UTI, Recurrent 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 Psychiatric History: Reports: Anxiety Endocrine/Metabolic History: Reports: Hypothyroidism Hematologic History: Reports: None Immunologic History: Reports: None Oncologic (Cancer) History: Reports: None Dermatologic History: Reports: None - Infectious Disease History Infectious Disease History: Reports: Chicken Pox - Past Surgical History Head Surgeries/Procedures: Reports: None GI Surgical History: Reports: Cholecystectomy, Other (See Below) Female Surgical History: Reports: Section Neurological Surgical History: Reports: Other (See Below) Other Neurological Surgeries/Procedures: back surgery X3 Musculoskeletal Surgical History: Reports: Other (See Below) Other Musculoskeletal Surgeries/Procedures:: back surgery X3 Social & Family History - Family History Family Medical History: Noncontributory Cardiac: Reports: Hypertension Endocrine/Metabolic: Reports: Diabetes, type II - Tobacco Use Smoking Status *Q: Never Smoker Second Hand Smoke Exposure: No - Caffeine Use Caffeine Use: Reports: None - Recreational Drug Use Recreational Drug Use: No - Living Situation & Occupation Living situation: Reports: with Family ED ROS GENERAL - Review of Systems Review Of Systems: ROS reveals no pertinent complaints other than HPI. ED EXAM, UPPER BACK/NECK PAIN - Physical Exam Exam: See Below Exam Limited By: No Limitations General Appearance: Alert, WD/WN, Moderate Distress, Obese Eye Exam: Bilateral Eye: EOMI, Normal Inspection, PERRL Ears Exam: Normal External Exam, Normal Canal, Hearing Grossly Normal, Normal TMs Nose Exam: Normal Inspection, Normal Mucousa, No Blood Throat/Mouth Exam: Normal Inspection, Normal Lips, Normal Teeth, Normal Gums, Normal Oropharynx, Normal Voice, No Airway Compromise Head Exam: Atraumatic, Normocephalic Neck Exam: Non-Tender, Full Range of Motion, Normal Alignment, Normal Inspection Nexus Criteria: Posterior, Midline Cervical Tenderness. 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, No Motor/Sensory Deficits, Alert, Normal Mood/Affect, Oriented x 3 Psychiatric: Anxious Skin Exam: Normal Color, Warm/Dry Lymphatic: No Adenopathy Course - Vital Signs Last Recorded V/S: Last Vital Signs Temp 36.2 C 08/25/17 07:37 Pulse 74 08/25/17 07:37 Resp 16 08/25/17 07:37 BP 137/92 H 08/25/17 07:37 Pulse Ox 99 08/25/17 07:37 - Orders/Labs/Meds Orders: Active Orders 24 hr Category Date Time Status Cervical Spine wo Cont [CT] Urgent Exams 08/25/17 07:39 Taken Head wo Cont [CT] Urgent Exams 08/25/17 07:39 Taken Departure - Departure Time of Disposition: 09:40 Disposition: Home, Self-Care 01 Condition: Fair Clinical Impression: Contusion of scalp Qualifiers: Encounter type: initial encounter Qualified Code(s): S00.03XA - Contusion of scalp, initial encounter Neck muscle strain Qualifiers: Encounter type: initial encounter Qualified Code(s): S16.1XXA - Strain of muscle, fascia and tendon at neck level, initial encounter - Discharge Information Instructions: Cervical Sprain, [id number], Contusion, Aleg-ei-Njys Forms: ED Department Discharge Care Plan Goals: The patient was advised of the examination and CT results during the visit. The patient was offered pain medication, but the patient refused the medications. The patient was encouraged to rest and ice the area. If the patient has any additional symptoms or concerns, the patient should follow-up with her primary care facility or return to the emergency department. - My Orders Last 24 Hours: My Active Orders 08/25/17 07:39 Cervical Spine wo Cont [CT] Urgent Head wo Cont [CT] Urgent - Assessment/Plan Last 24 Hours: My Active Orders 08/25/17 07:39 Cervical Spine wo Cont [CT] Urgent Head wo Cont [CT] Urgent
== END 2017-08-25 10:10 | disposition home or self-care (01) ==
LOC: DL.ED 07:20
DX: S16.1XXA Strain of muscle, fascia and tendon at neck level, initial encounter (principal); S00.03XA Contusion of scalp, initial encounter; E03.9 Hypothyroidism, unspecified; Z91.048 Other nonmedicinal substance allergy status; W07.XXXA Fall from chair, initial encounter
CPT/HCPCS: 70450; 72125; 99283

== ENCOUNTER 2017-10-22 21:58 | Emergency (ER) | payer MEDICAID, OTHER ==
[2017-10-22 23:09] LABS: ANION GAP 11.9; CHLORIDE,CL 103 mmol/L (101-111); SODIUM,NA 137 mmol/L (135-145)
[2017-10-22] MEDS ORDERED: metroNIDAZOLE 250 MG Tab PO ONE (23:33)
[2017-10-22] MEDS ORDERED: Phenazopyridine 95 MG Tab PO ONE (23:33)
[2017-10-22] MEDS ORDERED: Ciprofloxacin 500 MG Tab PO ONE (23:34)
[2017-10-22 23:43] VITALS: BP 121/67
--- NOTE | 2017-10-22 23:43 | EDM.PDOC ---
ED HPI GENERAL MEDICAL PROBLEM - General Chief Complaint: Abdominal Pain Stated Complaint: LOWER ABD PAIN [id number] Time Seen by Provider: 10/22/17 22:30 Source of Information: Reports: Patient History Limitations: Reports: No Limitations - History of Present Illness INITIAL COMMENTS - FREE TEXT/NARRATIVE: This 47 yo female patient reports to the ED with a 10 day history of increased lower abdominal pain. The patient actually describes the pain as a shooting pain going from her vagina to her rectal area. The patient reports her symptoms may have been going on longer than 10 days, but it has gotten much worse today. The patient reports that she has a clinic appointment this Sunday, but did not think she could wait until then. The patient reports that she has not done anything to make her symptoms better or worse. Duration: Week(s): Location: Reports: Abdomen, Pelvis Quality: Reports: Ache, Stabbing Severity: Moderate Improves with: Reports: None Worsens with: Reports: None Associated Symptoms: Reports: No Other Symptoms Lower Abdominal Pain Score (Numeric/FACES): 9 - Related Data Allergies Allergy/AdvReac Type Severity Reaction Status Date / Time mold Allergy Other Verified 10/22/17 22:07 pollen extracts Allergy Other Verified 10/22/17 22:07 DUST Allergy Other Uncoded 10/22/17 22:07 Home Meds: Home Meds ALPRAZolam [Xanax] 1 mg PO ASDIRECTED PRN 05/13/15 [History] Albuterol Sulfate [Proventil Hfa] 2 puff INH ASDIRECTED PRN 05/13/15 [History] Furosemide [Lasix] 20 mg PO DAILY 05/13/15 [History] Omeprazole 20 mg PO DAILY 05/13/15 [History] Levothyroxine 125 mcg PO DAILY 03/21/16 [History] Past Medical History HEENT History: Reports: Allergic Rhinitis, Impaired Vision Cardiovascular History: Reports: Heart Murmur Respiratory History: Reports: Asthma, Bronchitis, Recurrent, Pneumonia, Recurrent Gastrointestinal History: Reports: Chronic Constipation, GERD Genitourinary History: Reports: Renal Calculus, UTI, Recurrent 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 Psychiatric History: Reports: Anxiety Endocrine/Metabolic History: Reports: Hypothyroidism Hematologic History: Reports: None Immunologic History: Reports: None Oncologic (Cancer) History: Reports: None Dermatologic History: Reports: None - Infectious Disease History Infectious Disease History: Reports: Chicken Pox, Shingles - Past Surgical History Head Surgeries/Procedures: Reports: None GI Surgical History: Reports: Cholecystectomy, Other (See Below) Female Surgical History: Reports: Section, Tubal Ligation Neurological Surgical History: Reports: Other (See Below) Other Neurological Surgeries/Procedures: back surgery X3 Musculoskeletal Surgical History: Reports: Other (See Below) Other Musculoskeletal Surgeries/Procedures:: back surgery X3 Social & Family History - Family History Family Medical History: Noncontributory Cardiac: Reports: Hypertension Endocrine/Metabolic: Reports: Diabetes, type II - Tobacco Use Smoking Status *Q: Never Smoker Second Hand Smoke Exposure: No - Caffeine Use Caffeine Use: Reports: None - Recreational Drug Use Recreational Drug Use: No - Living Situation & Occupation Living situation: Reports: with Family ED ROS GENERAL - Review of Systems Review Of Systems: ROS reveals no pertinent complaints other than HPI. ED EXAM, RENAL/ - Physical Exam Exam: See Below Exam Limited By: No Limitations General Appearance: Alert, WD/WN, Moderate Distress, Obese Eye Exam: Bilateral Eye: EOMI, Normal Inspection, PERRL Ears: Normal External Exam, Normal Canal, Hearing Grossly Normal, Normal TMs Nose: Normal Inspection, Normal Mucosa, No Blood Throat/Mouth: Normal Inspection, Normal Lips, Normal Teeth, Normal Gums, Normal Oropharynx, Normal Voice, No Airway Compromise Head: Atraumatic, Normocephalic Neck: Normal Inspection, Supple, Non-Tender, Full Range of Motion Respiratory/Chest: No Respiratory Distress, Lungs Clear, Normal Breath Sounds, No Accessory Muscle Use, Chest Non-Tender Cardiovascular: Normal Peripheral Pulses, Regular Rate, Rhythm, No Edema, No Gallop, No JVD, No Murmur, No Rub GI/Abdominal: Normal Bowel Sounds, Soft, Non-Tender, No Organomegaly, No Distention, No Abnormal Bruit, No Mass (Female) Exam: Deferred Rectal (Female) Exam: Deferred Back Exam: Normal Inspection, Full Range of Motion, NT Extremities: Leg Pain Neurological: Alert, Oriented, CN II-XII Intact, Normal Cognition, Normal Gait, Normal Reflexes, No Motor/Sensory Deficits Psychiatric: Normal Affect, Normal Mood Skin Exam: Warm, Dry, Intact, Normal Color, No Rash Lymphatic: No Adenopathy Course - Vital Signs Last Recorded V/S: Last Vital Signs Temp 37.6 C 10/22/17 23:42 Pulse 80 10/22/17 23:42 Resp 18 10/22/17 23:42 BP 121/67 10/22/17 23:42 Pulse Ox 99 10/22/17 23:42 - Orders/Labs/Meds Orders: Active Orders 24 hr Category Date Time Status CULTURE URINE [RM] Stat Lab 10/22/17 23:36 Ordered DRUG SCREEN URINE BIORAD [URCHEM] Stat Lab 10/22/17 22:20 Ordered HCG QUALITATIVE,URINE [URCHEM] Stat Lab 10/22/17 22:20 Ordered Labs: Laboratory Tests 10/22/17 10/22/17 10/22/17 Range/Units 22:20 22:20 22:20 WBC (5.0-10.0) 10^3/uL RBC (4.2-5.4) 10^6/uL Hgb (12.0-16.0) g/dL Hct (37.0-47.0) % MCV (80-100) fL MCH (27.0-34.0) pg MCHC (33.0-35.0) g/dL Plt Count (150-450) 10^3/uL Neut % (Auto) (42.2-75.2) % Lymph % (Auto) (20.5-50.1) % Fleming % (Auto) (2-8) % Eos % (Auto) (1.0-3.0) % Baso % (Auto) (0.0-1.0) % Sodium (135-145) mmol/L Potassium (3.6-5.0) mmol/L Chloride (101-111) mmol/L Carbon Dioxide (21.0-31.0) mmol/L Anion Gap BUN (7-18) mg/dL Creatinine (0.6-1.3) mg/dL Est Cr Clr Drug Dosing mL/min Estimated GFR (MDRD) BUN/Creatinine Ratio Glucose (74-105) mg/dL Calcium (8.4-10.2) mg/dl Total Bilirubin (0.2-1.0) mg/dL AST (10-42) IU/L ALT (10-60) IU/L Alkaline Phosphatase (42-121) IU/L Total Protein (6.7-8.2) g/dl Albumin (3.2-5.5) g/dl Globulin Albumin/Globulin Ratio Amylase (28-100) U/L Lipase (22-51) U/L Urine Color Yellow (YELLOW) Urine Appearance Slightly cloudy (CLEAR) Urine pH 8.5 (5.0-9.0) Ur Specific [place] 1.015 (1.005-1.030) Urine Protein Negative (NEGATIVE) Urine Glucose (UA) Negative (NEGATIVE) Urine Ketones Negative (NEGATIVE) Urine Occult Blood Negative (NEGATIVE) Urine Nitrite Negative (NEGATIVE) Urine Bilirubin Negative (NEGATIVE) Urine Urobilinogen 0.2 (0.2-1.0) mg/dL Ur Leukocyte Esterase Small H (NEGATIVE) Urine RBC 0-5 /HPF Urine WBC 0-5 (0-5/HPF) /HPF Ur Epithelial Cells Moderate H /HPF Urine Bacteria Moderate H (0-FEW/HPF) /HPF Urinalysis Comment Urine HCG, Qual Negative Urine Opiates Screen Negative (NEGATIVE) Ur Oxycodone Screen Negative (NEGATIVE) Urine Methadone Screen Negative (NEGATIVE) Ur Barbiturates Screen Negative (NEGATIVE) U Tricyclic Antidepress Negative (NEGATIVE) Ur Phencyclidine Scrn Negative (NEGATIVE) Ur Amphetamine Screen Negative (NEGATIVE) U Methamphetamines Scrn Negative (NEGATIVE) Urine MDMA Screen Negative (NEGATIVE) U Benzodiazepines Scrn Positive H (NEGATIVE) Urine Cocaine Screen Negative (NEGATIVE) U Marijuana (THC) Screen Negative (NEGATIVE) 10/22/17 10/22/17 10/22/17 Range/Units 22:39 22:39 22:39 WBC 12.7 H (5.0-10.0) 10^3/uL RBC 4.48 (4.2-5.4) 10^6/uL Hgb 13.5 D (12.0-16.0) g/dL Hct 40.2 (37.0-47.0) % MCV 89.7 (80-100) fL MCH 30.1 (27.0-34.0) pg MCHC 33.6 (33.0-35.0) g/dL Plt Count 236 (150-450) 10^3/uL Neut % (Auto) 78.8 H (42.2-75.2) % Lymph % (Auto) 13.8 L (20.5-50.1) % Fleming % (Auto) 7.1 (2-8) % Eos % (Auto) 0.1 L (1.0-3.0) % Baso % (Auto) 0.2 (0.0-1.0) % Sodium 137 (135-145) mmol/L Potassium 3.9 (3.6-5.0) mmol/L Chloride 103 (101-111) mmol/L Carbon Dioxide 26.0 (21.0-31.0) mmol/L Anion Gap 11.9 BUN 8 (7-18) mg/dL Creatinine 0.9 (0.6-1.3) mg/dL Est Cr Clr Drug Dosing 71.03 mL/min Estimated GFR (MDRD) > 60 BUN/Creatinine Ratio 8.88 Glucose 125 H (74-105) mg/dL Calcium 8.4 (8.4-10.2) mg/dl Total Bilirubin 0.5 (0.2-1.0) mg/dL AST 24 (10-42) IU/L ALT 24 (10-60) IU/L Alkaline Phosphatase 84 (42-121) IU/L Total Protein 7.1 (6.7-8.2) g/dl Albumin 3.5 (3.2-5.5) g/dl Globulin 3.6 Albumin/Globulin Ratio 0.97 Amylase 22 L (28-100) U/L Lipase 13 L (22-51) U/L Urine Color (YELLOW) Urine Appearance (CLEAR) Urine pH (5.0-9.0) Ur Specific Hampton (1.005-1.030) Urine Protein (NEGATIVE) Urine Glucose (UA) (NEGATIVE) Urine Ketones (NEGATIVE) Urine Occult Blood (NEGATIVE) Urine Nitrite (NEGATIVE) Urine Bilirubin (NEGATIVE) Urine Urobilinogen (0.2-1.0) mg/dL Ur Leukocyte Esterase (NEGATIVE) Urine RBC /HPF Urine WBC (0-5/HPF) /HPF Ur Epithelial Cells /HPF Urine Bacteria (0-FEW/HPF) /HPF Urinalysis Comment Urine HCG, Qual Urine Opiates Screen (NEGATIVE) Ur Oxycodone Screen (NEGATIVE) Urine Methadone Screen (NEGATIVE) Ur Barbiturates Screen (NEGATIVE) U Tricyclic Antidepress (NEGATIVE) Ur Phencyclidine Scrn (NEGATIVE) Ur Amphetamine Screen (NEGATIVE) U Methamphetamines Scrn (NEGATIVE) Urine MDMA Screen (NEGATIVE) U Benzodiazepines Scrn (NEGATIVE) Urine Cocaine Screen (NEGATIVE) U Marijuana (THC) Screen (NEGATIVE) Meds: Medications Discontinued Medications Generic Name Dose Route Start Last Admin Trade Name Shola PRN Reason Stop Dose Admin Ciprofloxacin 500 mg 10/22/17 23:34 10/22/17 23:41 Ciprofloxacin Hcl PO 10/22/17 23:35 500 mg ONETIME ONE Administration Metronidazole 500 mg 10/22/17 23:33 10/22/17 23:41 Metronidazole PO 10/22/17 23:34 500 mg ONETIME ONE Administration Phenazopyridine HCl 190 mg 10/22/17 23:33 10/22/17 23:40 Urinary Pain Relief PO 10/22/17 23:34 190 mg ONETIME ONE Administration Departure - Departure Time of Disposition: 23:40 Disposition: Home, Self-Care 01 Condition: Fair Clinical Impression: Bacterial vaginitis - Discharge Information Instructions: Bacterial Vaginosis, Aheu-ue-Kojk Forms: ED Department Discharge Care Plan Goals: The patient was advised of the examination and lab results during the visit. The patient was given oral doses of Pyridium, Metronidazole and Cipro while in the ED. The patient was discharged with scripts for Metronidazole (500 mg) #14 to take 1 by mouth 2 times per day for 7 days, Cipro (500 mg) #10 to take 1 by mouth for 5 days and Pyridium (200 mg) #6 to take 1 by mouth 3 times per day. The patient was encouraged to follow-up with her primary care facility for continued evaluation and further management. If the patient has any additional symptoms or concerns, the patient should visit her primary care facility or return to the emergency department. - My Orders Last 24 Hours: My Active Orders 10/22/17 22:20 DRUG SCREEN URINE BIORAD [URCHEM] Stat HCG QUALITATIVE,URINE [URCHEM] Stat 10/22/17 23:36 CULTURE URINE [RM] Stat - Assessment/Plan Last 24 Hours: My Active Orders 10/22/17 22:20 DRUG SCREEN URINE BIORAD [URCHEM] Stat HCG QUALITATIVE,URINE [URCHEM] Stat 10/22/17 23:36 CULTURE URINE [RM] Stat
== END 2017-10-22 23:51 | disposition home or self-care (01) ==
LOC: DL.ED 21:58
DX: N76.0 Acute vaginitis (principal); E03.9 Hypothyroidism, unspecified; Z91.048 Other nonmedicinal substance allergy status; Z79.899 Other long term (current) drug therapy
CPT/HCPCS: 36415; 80053; 80305; 81001; 81025; 82150; 83690; 85025; 87086; 99284; A9270

== ENCOUNTER 2017-12-30 21:45 | Emergency (ER) | payer MEDICAID ==
[2017-12-30] MEDS ORDERED: Ondansetron 4 MG/2 ML SDV IV ONE (22:00)
[2017-12-30] MEDS ORDERED: Sodium Chloride 0.9% 1,000 ML IV ONE (22:00)
--- NOTE | 2017-12-30 22:34 | EDM.PDOC ---
ED HPI GENERAL MEDICAL PROBLEM - General Chief Complaint: Gastrointestinal Problem Stated Complaint: BLOCKAGE IN BOWELS [id number] Time Seen by Provider: 12/30/17 22:29 Source of Information: Reports: Patient History Limitations: Reports: No Limitations - History of Present Illness INITIAL COMMENTS - FREE TEXT/NARRATIVE: states 2 days ago had V&D and even vomit up piece of ham from 2 weeks ago. that stopped then been having abd bloating and weight gain and BM ranging from water to small lumps. Abdomen Pain Score (Numeric/FACES): 9 - Related Data Allergies Allergy/AdvReac Type Severity Reaction Status Date / Time mold Allergy Other Verified 12/30/17 21:51 pollen extracts Allergy Other Verified 12/30/17 21:51 DUST Allergy Other Uncoded 12/30/17 21:51 Home Meds: Home Meds ALPRAZolam [Xanax] 1 mg PO ASDIRECTED PRN 05/13/15 [History] Albuterol Sulfate [Proventil Hfa] 2 puff INH ASDIRECTED PRN 05/13/15 [History] Furosemide [Lasix] 20 mg PO DAILY 05/13/15 [History] Omeprazole 20 mg PO DAILY 05/13/15 [History] Levothyroxine 125 mcg PO DAILY 03/21/16 [History] tiZANidine [Zanaflex] 4 mg PO BID 12/30/17 [History] Past Medical History HEENT History: Reports: Allergic Rhinitis, Impaired Vision Cardiovascular History: Reports: Heart Murmur Respiratory History: Reports: Asthma, Bronchitis, Recurrent, Pneumonia, Recurrent Gastrointestinal History: Reports: Chronic Constipation, GERD Genitourinary History: Reports: Renal Calculus, UTI, Recurrent 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 Psychiatric History: Reports: Anxiety Endocrine/Metabolic History: Reports: Hypothyroidism Hematologic History: Reports: None Immunologic History: Reports: None Oncologic (Cancer) History: Reports: None Dermatologic History: Reports: None - Infectious Disease History Infectious Disease History: Reports: Chicken Pox, Influenza, Shingles - Past Surgical History Head Surgeries/Procedures: Reports: None GI Surgical History: Reports: Cholecystectomy Other GI Surgeries/Procedures: anal fissure surgery Female Surgical History: Reports: Section, Tubal Ligation Neurological Surgical History: Reports: Other (See Below) Other Neurological Surgeries/Procedures: back surgery X3 Musculoskeletal Surgical History: Reports: Other (See Below) Other Musculoskeletal Surgeries/Procedures:: back surgery X3 Social & Family History - Family History Family Medical History: Noncontributory Cardiac: Reports: Hypertension Endocrine/Metabolic: Reports: Diabetes, type II - Tobacco Use Smoking Status *Q: Never Smoker Second Hand Smoke Exposure: No - Caffeine Use Caffeine Use: Reports: None - Recreational Drug Use Recreational Drug Use: No - Living Situation & Occupation Living situation: Reports: with Family ED ROS GENERAL - Review of Systems Review Of Systems: ROS reveals no pertinent complaints other than HPI. ED EXAM, GI/ABD - Physical Exam Exam: See Below Exam Limited By: No Limitations General Appearance: Alert, WD/WN, Mild Distress, Other (crying) Ears: Hearing Grossly Normal Throat/Mouth: Normal Voice, No Airway Compromise Head: Atraumatic Neck: Non-Tender, Full Range of Motion Respiratory/Chest: No Respiratory Distress Cardiovascular: Regular Rate, Rhythm GI/Abdominal Exam: Distended, Tender, Abnormal Bowel Sounds, Other (BS hyper). No: Guarding, Rigid, Rebound Neurological: Alert, Oriented, Normal Cognition, Normal Gait, No Motor/Sensory Deficits Psychiatric: Tearful Skin Exam: Warm, Dry, Normal Color Lymphatic: No Adenopathy Course - Vital Signs Last Recorded V/S: Last Vital Signs Temp 36.9 C 12/30/17 21:47 Pulse 79 12/30/17 21:47 Resp 22 H 12/30/17 21:47 BP 133/93 H 12/30/17 21:47 Pulse Ox 99 12/30/17 21:47 - Orders/Labs/Meds Labs: Laboratory Tests 12/30/17 12/30/17 Range/Units 22:18 22:18 WBC 7.6 (5.0-10.0) 10^3/uL RBC 4.67 (4.2-5.4) 10^6/uL Hgb 13.5 (12.0-16.0) g/dL Hct 42.2 (37.0-47.0) % MCV 90.4 (80-100) fL MCH 28.9 (27.0-34.0) pg MCHC 32.0 L (33.0-35.0) g/dL Plt Count 222 (150-450) 10^3/uL Neut % (Auto) 60.4 (42.2-75.2) % Lymph % (Auto) 31.9 (20.5-50.1) % Holt % (Auto) 7.5 (2-8) % Eos % (Auto) 0.1 L (1.0-3.0) % Baso % (Auto) 0.1 (0.0-1.0) % Sodium 137 (135-145) mmol/L Potassium 4.2 (3.6-5.0) mmol/L Chloride 102 (101-111) mmol/L Carbon Dioxide 27.0 (21.0-31.0) mmol/L Anion Gap 12.2 BUN 10 (7-18) mg/dL Creatinine 0.8 (0.6-1.3) mg/dL Est Cr Clr Drug Dosing 79.91 mL/min Estimated GFR (MDRD) > 60 BUN/Creatinine Ratio 12.50 Glucose 122 H (74-105) mg/dL Calcium 8.6 (8.4-10.2) mg/dl Total Bilirubin 0.6 (0.2-1.0) mg/dL AST 27 (10-42) IU/L ALT 25 (10-60) IU/L Alkaline Phosphatase 80 (42-121) IU/L Total Protein 7.0 (6.7-8.2) g/dl Albumin 3.6 (3.2-5.5) g/dl Globulin 3.4 Albumin/Globulin Ratio 1.06 Amylase 37 (28-100) U/L Lipase 18 L (22-51) U/L Meds: Medications Discontinued Medications Generic Name Dose Route Start Last Admin Trade Name Freq PRN Reason Stop Dose Admin Hydromorphone HCl 1 mg 12/30/17 23:03 12/30/17 23:08 Dilaudid IVPUSH 12/30/17 23:04 1 mg ONETIME ONE Administration Sodium Chloride 1,000 mls @ 999 mls/hr 12/30/17 22:00 12/30/17 22:20 Normal Saline IV 12/30/17 23:00 999 mls/hr .BOLUS ONE Administration Iopamidol 100 ml 12/30/17 23:04 12/30/17 23:35 Isovue-300 (61%) IVPUSH 12/30/17 23:05 100 ml ONETIME ONE Administration Metoclopramide HCl 10 mg 12/30/17 22:37 12/30/17 22:46 Reglan IVPUSH 12/30/17 22:38 10 mg ONETIME ONE Administration Ondansetron HCl 4 mg 12/30/17 22:00 12/30/17 22:21 Zofran IV 12/30/17 22:01 4 mg ONETIME ONE Administration - Re-Assessments/Exams Free Text/Narrative Re-Assessment/Exam: 12/31/17 00:38 results discussed with pt who is feeling better now. Departure - Departure Time of Disposition: 00:38 Disposition: Home, Self-Care 01 Condition: Good Clinical Impression: Splenic cyst Diverticulosis Qualifiers: Diverticulosis site: diverticulosis of large intestine Diverticulosis bleeding : diverticulosis without bleeding Qualified Code(s): K57.30 - Diverticulosis of large intestine without perforation or abscess without bleeding - Discharge Information Instructions: Abdominal Pain, Adult, [id number] Forms: ED Department Discharge Additional Instructions: 1) see clinic tomorrow for MRI SCAN for splenic cyste 2) avoid solid foods next few days 3) try prune juice, MIRALAX 4) recheck if there is any change or concern
[2017-12-30] MEDS ORDERED: Metoclopramide 10 MG/2 ML SDV IVPUSH ONE (22:37)
[2017-12-30 22:45] LABS: ANION GAP 12.2; CHLORIDE,CL 102 mmol/L (101-111); SODIUM,NA 137 mmol/L (135-145)
[2017-12-30] MEDS ORDERED: HYDROmorphone 0.5 MG/0.5 ML Syringe IVPUSH ONE (23:03)
[2017-12-30] MEDS ORDERED: Iopamidol 612 MG/ML 100 ML Bottle IVPUSH ONE (23:04)
[2017-12-31 01:00] VITALS: BP 119/76
== END 2017-12-31 00:54 | disposition home or self-care (01) ==
LOC: DL.ED 21:45
DX: K57.30 Diverticulosis of large intestine without perforation or abscess without bleeding (principal); D73.4 Cyst of spleen; J45.909 Unspecified asthma, uncomplicated; Z91.048 Other nonmedicinal substance allergy status; Z79.899 Other long term (current) drug therapy
CPT/HCPCS: 36415; 74177; 80053; 82150; 83690; 85025; 96361; 96374; 96375; 99284; J1170; J2405; J2765; J7030; Q9967; 99283

== ENCOUNTER 2018-08-22 12:26 | Emergency (ER) | payer MEDICAID, OTHER ==
--- NOTE | 2018-08-22 13:08 | EDM.PDOC ---
<Andrae Ramirez - Last Filed: 08/22/18 14:33> ED HPI GENERAL MEDICAL PROBLEM - General Chief Complaint: Back Pain or Injury Stated Complaint: SLIPPED AND HURT BACK Time Seen by Provider: 08/22/18 13:01 Source of Information: Reports: Patient History Limitations: Reports: No Limitations - History of Present Illness INITIAL COMMENTS - FREE TEXT/NARRATIVE: Patient fell down flight of 8 carpeted steps while carrying laundry at her apartment. Happened right before arrival at 1205. Patient has had extensive back surgeries and has titanium rods, cadaveric bones and cages in her back, so patient was concerned about the hardware in her back with the fall. Her back took most of the fall, she did hit left occiput, but not hard. She did not lose consciousness after the event. No nausea or vomiting after the fall. Her lower back and butt are the most bothersome, but between her shoulders is also tender. She also has had some congestion for 2 days. Cough started last night, coughing up sputum. Sore throat. No diarrhea or abdominal symptoms. Very concerned she has the flu because she did not get the flu shot this year. Onset: Today Bilateral Lower Back Pain Score (Numeric/FACES): 7 - Related Data Allergies Allergy/AdvReac Type Severity Reaction Status Date / Time hydrocodone Allergy Nausea and Verified 08/22/18 13:49 Vomiting mold Allergy Other Verified 08/22/18 13:49 pollen extracts Allergy Other Verified 08/22/18 13:49 DUST Allergy Other Uncoded 04/29/18 06:09 Home Meds: Home Meds ALPRAZolam [Xanax] 1 mg PO ASDIRECTED PRN 05/13/15 [History] Albuterol Sulfate [Proventil Hfa] 2 puff INH ASDIRECTED PRN 05/13/15 [History] Furosemide [Lasix] 20 mg PO DAILY 05/13/15 [History] Omeprazole 20 mg PO DAILY 05/13/15 [History] Levothyroxine 175 mcg PO DAILY 03/21/16 [History] tiZANidine [Zanaflex] 4 mg PO BID 12/30/17 [History] Betamethasone/Clotrimazole [Lotrisone] 1 applic TOP ASDIRECTED 04/16/18 [History ] Clobetasol [Clobetasol 0.05%] 1 applic TOP ASDIRECTED 04/16/18 [History] Pantoprazole Sodium 40 mg PO DAILY 04/16/18 [History] Phentermine HCl [Lomaira] 8 mg PO DAILY 04/16/18 [History] Topiramate 25 mg PO DAILY 04/16/18 [History] Past Medical History HEENT History: Reports: Allergic Rhinitis, Impaired Vision Cardiovascular History: Reports: Heart Murmur Respiratory History: Reports: Asthma, Bronchitis, Recurrent, Pneumonia, Recurrent Gastrointestinal History: Reports: Chronic Constipation, GERD Genitourinary History: Reports: Renal Calculus, UTI, Recurrent 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 Psychiatric History: Reports: Anxiety Endocrine/Metabolic History: Reports: Hypothyroidism Hematologic History: Reports: None Immunologic History: Reports: None Oncologic (Cancer) History: Reports: None Dermatologic History: Reports: None - Infectious Disease History Infectious Disease History: Reports: Chicken Pox, Influenza, Shingles - Past Surgical History Head Surgeries/Procedures: Reports: None HEENT Surgical History: Reports: None Cardiovascular Surgical History: Reports: None Respiratory Surgical History: Reports: None GI Surgical History: Reports: Cholecystectomy Other GI Surgeries/Procedures: anal fissure surgery Female Surgical History: Reports: Section, Tubal Ligation Neurological Surgical History: Reports: Other (See Below) Other Neurological Surgeries/Procedures: back surgery X3 Musculoskeletal Surgical History: Reports: Other (See Below) Other Musculoskeletal Surgeries/Procedures:: back surgery X3 Social & Family History - Family History Family Medical History: Noncontributory Cardiac: Reports: Hypertension Endocrine/Metabolic: Reports: Diabetes, type II - Caffeine Use Caffeine Use: - Living Situation & Occupation Living situation: Reports: with Family ED ROS GENERAL - Review of Systems Review Of Systems: ROS reveals no pertinent complaints other than HPI. ED EXAM,LOWER BACK PAIN/INJURY - Physical Exam Exam: See Below Exam Limited By: No Limitations General Appearance: Alert, WD/WN, No Apparent Distress Eye Exam: Bilateral Eye: Normal Inspection, PERRL Ears: Normal External Exam, Normal Canal, Hearing Grossly Normal, Normal TMs Nose: Normal Inspection, Normal Mucosa, No Blood Throat/Mouth: Normal Inspection, Normal Lips, Normal Teeth, Normal Gums, Normal Oropharynx, Normal Voice, No Airway Compromise Head: Atraumatic, Normocephalic Neck: Normal Inspection, Supple, Non-Tender, Full Range of Motion Respiratory/Chest: No Respiratory Distress, Lungs Clear, Normal Breath Sounds, No Accessory Muscle Use, Chest Non-Tender Cardiovascular: Normal Peripheral Pulses, Regular Rate, Rhythm, No Edema, No Gallop, No Murmur, No Rub GI/Abdominal: Soft, Non-Tender, No Distention (Female) Exam: Deferred Rectal (Female) Exam: Deferred Back Exam: Normal Inspection, Other (tenderness on palpation between shoulder blades and lower back. No bruising or signs of injury. ) Extremities: Normal Inspection, Non-Tender, No Pedal Edema Neurological: Alert, Normal Mood/Affect, Oriented x 3 Psychiatric: Normal Affect, Normal Mood Skin Exam: Warm, Dry, Intact, No Rash Lymphatic: No Adenopathy Course - Vital Signs Last Recorded V/S: Last Vital Signs Temp 37.5 C 08/22/18 12:45 Pulse 109 H 08/22/18 12:45 Resp 12 08/22/18 12:45 BP 137/98 H 08/22/18 12:45 Pulse Ox 99 08/22/18 12:45 Departure - Departure Disposition: Home, Self-Care 01 Condition: Good Clinical Impression: Influenza A Back pain Qualifiers: Back pain location: low back pain Chronicity: chronic Back pain laterality: right Sciatica presence: with sciatica Sciatica laterality: sciatica of right side Qualified Code(s): M54.41 - Lumbago with sciatica, right side - Discharge Information *PRESCRIPTION DRUG MONITORING PROGRAM REVIEWED*: Not Applicable *COPY OF PRESCRIPTION DRUG MONITORING REPORT IN PATIENT DARRELL: Not Applicable Instructions: Influenza, Adult, [id number], Back Pain, Adult, [id number] Forms: ED Department Discharge Additional Instructions: Take Tamiflu 75 mg two times per day for 5 days. Tessalon perles up to three times per day as needed. Follow-up with your primary care physician as needed or if symptoms worsen. <Juan M Brothers - Last Filed: 08/22/18 14:34> Course - Re-Assessments/Exams Free Text/Narrative Re-Assessment/Exam: 08/22/18 14:30 I personally performed or re-performed the physical examination and medical decision making. I have verified all student documentation or findings, including history, physical exam and/or medical decision making. Departure - Departure Time of Disposition: 14:30
[2018-08-22 13:27] VITALS: BP 137/98; PULSE 109
--- NOTE | 2018-08-22 13:37 | CR ---
Clinical history: 48-year-old female injured (fall down stairs) and now experiencing low back pain. Interpretation: AP lateral views lumbosacral spine demonstrate evidence of extensive lower lumbar surgery with posterior spinal fusion as noted on previous comparison exam (CT scan) 04 November 2016. Slight dorsolumbar scoliosis, exaggerated lumbar lordosis and chronic slight L4 anterolisthesis. No new (acute) evidence lumbar fracture or dislocation. Lower 3 ribs on both sides unremarkable posteriorly. Symmetric spacing normal-appearing SI and hip joints. CONCLUSION: Previous lower lumbar surgery. No acute fracture or dislocation.
--- NOTE | 2018-08-22 13:40 | CR ---
Clinical history: 48-year-old female injured fall downstairs (history previous lower lumbar spinal surgery but "no acute fracture"). Interpretation: Tiny marginal spur formation (spondylosis) at all levels. Age and gender appropriate homogeneous normal bone mineral density. No paraspinal soft tissue mass or hematoma. No sign of pathologic skeletal lesion, thoracic fracture, spondylolisthesis or abnormal intervertebral disc space narrowing. (Incidentally noted disc disease with arthritic changes mid/lower cervical spine) Posterior ribs unremarkable.
== END 2018-08-22 14:39 | disposition home or self-care (01) ==
LOC: DL.ED 12:26
DX: J10.1 Influenza due to other identified influenza virus with other respiratory manifestations (principal); M54.41 Lumbago with sciatica, right side; E03.9 Hypothyroidism, unspecified; F41.9 Anxiety disorder, unspecified; J45.909 Unspecified asthma, uncomplicated; Z79.899 Other long term (current) drug therapy; Z88.6 Allergy status to analgesic agent; Z91.09 Other allergy status, other than to drugs and biological substances; Z91.018 Allergy to other foods
CPT/HCPCS: 72070; 72100; 87804; 99283